=== PATIENT | female | born 1975 | race Caucasian/White ===

== ENCOUNTER 2019-03-16 19:17 | Emergency (ER) | payer OTHER, SELFPAY ==
[2019-03-16 19:18] VITALS: BP 141/92; PULSE 82; RESP 17; TEMP 36.7; O2SAT 100; BMI 25.7
--- NOTE | 2019-03-16 19:31 | EKG12_ITS ---
Test Reason : CP Blood Pressure : / mmHG Vent. Rate : 074 BPM Atrial Rate : 074 BPM P-R Int : 152 ms QRS Dur : 098 ms QT Int : 398 ms P-R-T Axes : 063 054 048 degrees QTc Int : 441 ms Normal sinus rhythm ICR BBB Confirmed by ROGERS BOSS, KENNETH ([id number]), technical editor SERINA GARCIA ([id number]) on 03/18/2019 11:14:06 AM Referred By: RU Confirmed By:KENNETH MCCLOUD MD
[2019-03-16 19:37] VITALS: O2SAT 100
--- NOTE | 2019-03-16 19:38 | ED.DCSUM_ITS ---
- ER Visit Summary Date of Service: 03/16/19 Chief Complaint: Chest pain and palpitations History of Present Illness: The patient is a 43 F who presents with chest pain and palpitations that have been intermittent over the past 5 days. Patient states her pain is in the substernal area. Patient states it feels as though something is crawling in her chest. Patient states she gets intermittent flushed feelings. Patient also states she has intermittent bilateral arm soreness. Patient denies any shortness of breath but admits to a recent cough. Patient also admits to her sore throat a couple weeks ago. Patient admits to subjective fevers. Patient denies any nausea or vomiting. Patient denies any diaphoresis. Patient denies any heartburn or reflux. Physical Examination: Vital signs are stable. Patient is afebrile. Patient is in no acute distress. Oral mucosa is pink and moist. Neck is supple. Trachea is midline. There is no JVD noted. Heart was regular rate and rhythm. Lungs are clear and equal bilateral. There is no reproducible chest tenderness. Abdomen is soft. Bowel sounds are normal. There is no tenderness. There is no guarding noted. Skin is warm dry. Cranial nerves II through XII are intact. There are no focal motor or sensory deficits noted. The remaining physical exam is within normal limits. Test Results: EKG showed normal sinus rhythm with a rate of 74. There are no acute ST or T wave changes. CBC, basic metabolic profile, and troponin were obtained and were normal. PA and lateral chest x-ray was obtained and was normal. Emergency Department Course and Treatment: Patient was given 4 baby aspirin here. Patient felt better on reevaluation. Patient has a HEART score of 2. Patient was advised that this is low risk for acute cardiac event. Patient was instructed to follow-up with her primary care physician in 5 to 7 days. Patient understood and was agreeable with the plan. All questions were answered. Disposition: Discharge home Impression: Chest pain This note was generated with [employer] dictation software. It may contain incorrect words, spelling, and punctuation that were not noted in review of the chart prior to signing ED Disposition - Plan for ED Patient: Disposition: Home or Assisted Living Diagnosis: Chest pain Instructions: ED Palpitations, ED Chest Pain Atypical Unkn Cause Referrals: Alisha Davison DO [Primary Care Provider] - 3-5 Days
--- NOTE | 2019-03-16 19:40 | RAD_ITS ---
HISTORY:CHEST PAIN CHEST PAIN EXAM: XR Chest 2 Views: COMPARISON: July 19, 2016 FINDINGS: # of images incl. paperwork: 2 LINES/DEVICES: None. LUNGS: Radiographically clear. No consolidation, edema or effusion. No pneumothorax. MEDIASTINUM AND CARDIOVASCULAR STRUCTURES: Cardiac silhouette not enlarged. BONES AND SOFT TISSUES: Unremarkable. RAD/Chest PA and Lateral IMPRESSION: No radiographic evidence of acute cardiopulmonary disease. at 1956 Reported and signed by: Myrna Mehta DO Electronically Signed: Myrna Mehta DO at 19:57 EDT Tel , Service support ,
[2019-03-16 19:44] LABS: Absolute Lymphocyte Count 2.89 X10^3/ul (0.83-4.51); Absolute Neutrophil Count 6.3 X10^3/uL (2.0-7.7); Basophil# 0.01 X10^3/uL; Basophil% 0.1 % (0-1); Eosinophil# 0.22 X10^3/uL; Eosinophils% 2.2 % (0-5); Hematocrit 42.2 % (37-47); Hemoglobin 14.6 g/dl (12.0-15.0); Lymphocyte # 2.89 X10^3/ul (4.0); Lymphocyte % 28.7 % (19-41); Mean Corp Hgb Conc 34.6 g/gl (32-36); Mean Corpuscular Hgb 30.1 pg (27.0-32.0); Mean Platelet Vol. 9.6 fl (6.2-12.0); Monocyte# 0.61 X10^3/uL; Monocyte% 6.1 % (0-10); Neutrophil # 6.33 X10^3/uL (2.7-7.7); Neutrophil % 62.7 % (47-70); Platelet Count 328 K/mm3 (150-450); RBC Distribution Width SD 41.6 fl (35.1-43.9); Red Blood Count 4.85 M/mm3 (4.2-5.4); White Blood Count 10.1 K/mm3 (4.4-11.0)
[2019-03-16 19:46] LABS: POSITIVE COUNT NO; POSITIVE DIFFERENTIAL NO; POSITIVE MORPHOLOGY NO
[2019-03-16] MEDS: Aspirin 81 MG TAB.CHEW 324 MG PO (19:47)
[2019-03-16 20:03] LABS: Anion Gap 7 (5-15); BUN 9 mg/dL (7-18); BUN/Creat Ratio 12.5 RATIO (10-20); Calcium,Total 9.2 mg/dL (8.5-10.1); Chloride 105 mmol/L (98-107); Creatinine, Serum 0.72 mg/dL (0.55-1.02); EST Glomerular Filtration Rate 95 mL/min (>60); Est Glom Filt Rate - Afr Amer 115 mL/min (>60); Estimated Creatinine Clearance 96.26 ml/min; Glucose 83 mg/dL (74-106); Potassium 3.6 mmol/L (3.5-5.1); Sodium Level 137 mmol/L (136-145)
[2019-03-16 20:30] VITALS: BP 116/86; PULSE 67; RESP 16; O2SAT 100
== END 2019-03-16 20:31 | disposition home or self-care (01) ==
PROVIDERS: Emergency Provider Emergency Medicine; Family Provider Internal Medicine; PCP Internal Medicine
DX: R07.9 Chest pain, unspecified (principal); R00.2 Palpitations; R05 Cough; R51 Headache; J02.9 Acute pharyngitis, unspecified
CPT/HCPCS: 71046; 80048; 84484; 85025; 93005; 99285; A4216

== ENCOUNTER → 2021-09-19 13:04 | Outpatient (CLI) | payer OTHER, SELFPAY ==
--- NOTE | 2021-09-19 13:06 | BI_ITS ---
MAMMOGRAPHY - BILATERAL SCREENING REASON FOR EXAM: Female, 45 years old. Routine annual screening examination. PERTINENT HISTORY: Grandmother with breast cancer. TECHNIQUE: Digital bilateral breast vickie (3D mammographic acquisition) in the CC and MLO projections. 2-D mediolateral oblique (MLO) and craniocaudad (CC) views of both breasts were obtained. CAD: Full Field Digital Mammography with Computer Added Detection was performed. COMPARISON: Comparison is made with prior outside examination dated 07/02/2019. FINDINGS: Breast Composition: The breasts are heterogeneously dense, which may obscure small masses. There are no dominant masses or suspicious calcifications. Stable benign appearing bilateral axillary lymph nodes. No other significant abnormalities are identified. There has been no significant change since the prior study. BI/SCRN MAMM (CAD)W/VICKIE BILAT IMPRESSION: Stable bilateral screening mammogram. Yearly follow-up mammogram recommended. (A) ASSESSMENT CATEGORY: BIRADS Category 2: Benign. A letter regarding these results will be sent to the patient by the facility within 30 days. Approximately 10% of breast cancers are not detected by mammography. A normal mammogram should not delay biopsy of a clinically suspicious abnormality. [id number] Electronically Signed: Blas Berumen MD at 12:49 EST , Service support ,
== END ==
PROVIDERS: PCP Internal Medicine; Referring Provider Obstetrics & Gynecology; Visit Provider Obstetrics & Gynecology
DX: Z12.31 Encounter for screening mammogram for malignant neoplasm of breast (principal)
CPT/HCPCS: 77063; 77067

== ENCOUNTER → 2024-09-23 | Outpatient (CLI) | payer OTHER, SELFPAY ==
--- NOTE | 2024-09-23 15:36 | BI_ITS ---
MAMMOGRAPHY - BILATERAL SCREENING REASON FOR EXAM: Female, 48 years old. Routine annual screening examination. PERTINENT HISTORY: Grandmother with breast cancer. TECHNIQUE: Digital bilateral breast vickie (3D mammographic acquisition) in the CC and MLO projections. 2-D mediolateral oblique (MLO) and craniocaudad (CC) views of both breasts were obtained. CAD: Full Field Digital Mammography with Computer Added Detection was performed. COMPARISON: Comparison is made with prior study of September 19, 2021. FINDINGS: Breast Composition: The breasts are heterogeneously dense, which may obscure small masses. There are no dominant masses or suspicious calcifications. Stable small benign-appearing bilateral axillary lymph nodes. No other significant abnormalities are identified. There has been no significant change since the prior study. BI/SCRN MAMM (CAD)W/VICKIE BILAT IMPRESSION: Stable bilateral screening mammogram. Yearly follow-up mammogram recommended. (A) ASSESSMENT CATEGORY: BIRADS Category 2: Benign. A letter regarding these results will be sent to the patient by the facility within 30 days. Approximately 10% of breast cancers are not detected by mammography. A normal mammogram should not delay biopsy of a clinically suspicious abnormality. [id number] Electronically Signed: Blas Berumen MD at 8:38 EST ,
== END | disposition home or self-care (01) ==
PROVIDERS: PCP Internal Medicine; Referring Provider Nurse Practitioner Family; Visit Provider Nurse Practitioner Family
DX: Z12.31 Encounter for screening mammogram for malignant neoplasm of breast (principal); Z80.3 Family history of malignant neoplasm of breast
CPT/HCPCS: 77063; 77067

== ENCOUNTER → 2024-12-14 | Outpatient (CLI) | payer OTHER, SELFPAY ==
--- NOTE | 2024-12-14 | EMB_PTH ---
PATIENT: TARA CRUZ LOC: [facility] U#:[id number] AGE/SX: 48/F ROOM: RE12/14/[address]: Dr. Ceci Suarez MD : 1975 BED: DIS: 12/14/2024 SPEC #: [id number] RECD: 12/14/24 15:49 STATUS: DAYNA RERene #: [id number] MELISSA: 12/14/24 00:[address]: Ceci Suarez DEPT: SURGICAL PATHOLOGY RECD BY: Adrian Lee ENTERED: 12/15/24 07:42 SP TYPE: ENDOM BX/C DANNY DR: Dr. 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 * Note: The amount of tissue (epithelium) is limited. MICROSCOPIC DESCRIPTION Slides are reviewed. GROSS DESCRIPTION Received is one container labeled with the patient's name and accession number. It is not further designated. The container is opened, revealing no definite tissue in the container. The formalin is filtered into a cassette for processing and a cellblock is prepared from the filtrate. TE2. EH 12/15/24. CPT:67031
[2024-12-18 10:08] LABS: HPV APTIMA, High Risk Negative (Negative)
[2024-12-19 13:08] LABS: DHEA Sulfate 91.9 ug/dL (41.2-243.7); Testosterone Free 1.4 pg/mL (0.0-4.2)
== END | disposition home or self-care (01) ==
LOC: BWCLAB 09:06
PROVIDERS: PCP Internal Medicine; Visit Provider Obstetrics & Gynecology
DX: Z12.4 Encounter for screening for malignant neoplasm of cervix (principal); C80.1 Malignant (primary) neoplasm, unspecified; N91.1 Secondary amenorrhea
CPT/HCPCS: 36415; 82627; 84402; 87624; 88175; 88305; 82626; G0145

== ENCOUNTER → 2025-09-27 | Outpatient (CLI) | payer OTHER, SELFPAY ==
[2025-09-27 13:31] LABS: Follicle Stimulating Hormone 78.0 mIU/mL
--- OUTSIDE RECORDS SUMMARY | 2025-09-27 18:27 | XMS RPT_ITS | CCD ---
Author Organization [facility] Care Team Providers Care Air Press Operator Name Role Phone Alisha Ingram Unavailable Day Chantel Unavailable Unavailable Unavailable Unavailable Unavailable Primary Care Provider UnavailGabriel Shoemaker MD Unavailable [phone] Alisha Ingram DO Primary Care Provider GABRIEL SANDERS Attending Unavailable CECI SALEEM Referring Unavailable ALISHA INGRAM Primary Care Unavailable Ceci Saleem Attending Unavailable Alisha Ingram Primary Care Unavailable Alisha Ingram Referring Unavailable Alisha Ingram Primary Care Unavailable Shalini Lange Attending Unavailable Shalini Lange Referring Unavailable Alisha Ingram Primary Care Unavailable Ceci Saleem Attending Unavailable Dr. Alisha Ingram DO Primary Care Provider [phone] Nazario RANCH HAND LIVESTOCK-CShalini Attending Provider [phone] Nazario RANCH HAND LIVESTOCK-CShalini Referring Provider Dr. Alisha Ingram DO Referring Provider Dr. Ceci Saleem MD Attending Provider Allergies Allergy Classification Reported Allergen(s) Allergy Type Date of Onset Reaction(s) Facility (5 sources) Prochlorperazine; Translations: [Compazine *ANTIPSYCHOTICS*] Drug Allergy 06-18-20 06 Other [facility] Work Phone: (4 sources) Sulfamethoxazole / Trimethoprim; Translations: [Bactrim *Anti-infective Agents - Misc.] Drug Allergy 12-19-19 25 [facility] Work Phone: (2 sources) Prochlorperazine; Translations: [PROCHLORPERAZINE EDISYLATE] Drug Allergy 06-18-20 06 [facility] (2 sources) Sulfonamides (Antibiotic); Translations: [SULFA (SULFONAMIDE ANTIBIOTICS)] Propensity to adverse reactions 06-18-20 06 GI Upset [facility] (2 sources) Trimethoprim Drug Allergy 03-16-20 19 Other [facility] (1 source) Prochlorperazine Drug Allergy 03-16-20 19 [facility] (1 source) Sulfamethoxazole Drug Allergy 03-16-20 19 [facility] (1 source) Trimethoprim Drug Allergy 03-16-20 19 [facility] (1 source) Sulfamethoxazole Drug Allergy 03-16-20 19 Other [facility] Medications Current Medications Medication Drug Class(es) Dates Sig (Normalized) Sig (Original) Ethinyl Estradiol / norgestimate (1 source) Progestin, Estrogen Start: 3 take 1 tablet by mouth once daily Norgestimate-Ethinyl Estradiol (TRI-SPRINTEC) 0.18/0.215/0.25 mg-35 mcg (28) Tab Take 1 tablet by mouth once daily. 1 Package 10 01/13/2013 Active medroxyPROGESTERone acetate 10 mg oral tablet (2 sources) Progestin Start: 5 take 1 tablet by mouth once daily medroxyPROGESTERone (Provera) 10 MG tablet Take 10 mg by mouth daily. 12/15/2024 Active Multiple Vitamin (multivitamin) tablet (1 source) take 1 tablet by mouth once daily Multiple Vitamin (multivitamin) tablet Take 1 tablet by mouth daily. Active Multivitamin (Once Daily) 1 EACH tablet (1 source) Start: 9 take 1 tablet by mouth once daily Multivitamin (Once Daily) 1 EACH tablet Active 1 NMA PO DAILY March 16, 2019 12:00am Rpnpxqrg-Ch-Cdm-Fe-FA ( VITAMIN) Tab (1 source) take 1 tablet by mouth once Uowcfdur-Et-Cpc-Fe-FA ( VITAMIN) Tab Take 1 tablet by mouth. Active vitamin b12 1 mg oral capsule (2 sources) Vitamin B12 Start: 9 take 1 capsule by mouth once daily Cyanocobalamin (Vitamin B-12) 1,000 MCG capsule Active 1000 ug PO DAILY March 16, 2019 12:00am take 1 tablet by mouth once rm y cyanocobalamin (Vitamin B-12) 1000 MCG tablet Take 1,000 mcg by mouth daily. Active Completed/Discontinued Medications Medication Drug Class(es) Dates Sig (Normalized) Sig (Original) acetaminophen 500 mg / HYDROcodone bitartrate 5 mg oral tablet (3 sources) Opioid Agonist End: 04-18-2009 take 1 tablet by mouth every four to six hours as needed VICODIN, 5-500MG (Oral Tablet) 1 q 4-6 hrs prn for 0 days Refills: 0 Ordered: 18-Apr-2009 RICHIE Martínez End : 18-Apr-2009 Inactive 200 actuat albuterol 0.09 mg/actuat metered dose inhaler (6 sources) beta2-Adrenergic Agonist Start: 07-19-2016 End: 07-29-2017 ProAir HFA 108 (90 Base) MCG/ACT Inhalation Aerosol Solution 2 (two) Aerosol Soln q 6 hr prn for 0 days Quantity: 1 {Inhaler} Refills: 0 Ordered: 29-Jul-2017 Chantel Bernstein LPN Start : 19-Jul-2016 End : 29-Jul-2017 Inactive Start: 01-27-2008 End: 02-17-2008 PROVENTIL HFA, 108 (90 Base) MCG/ACT (Inhalation Aerosol Solution) 2 (two) Aerosol Soln TID/PRN for 0 days Quantity: 1 {Aerosol_Soln} Refills: 0 Ordered: 27-Jan-2008 RICHIE Martínez Start : 27-Jan-2008 End : 17-Feb-2008 Discontinued amoxicillin 875 mg / clavulanate 125 mg oral tablet (3 sources) Penicillin-class Antibacterial Start: 07-19-2016 End: 07-29-2017 take 1 tablet by mouth twice daily Augmentin 875-125 MG Oral Tablet 1 (one) Tablet bid for 0 days Quantity: 20 {Tablet} Refills: 0 Ordered: 29-Jul-2017 Chantel Bernstein LPN Start : 19-Jul-2016 End : 29-Jul-2017 Inactive azithromycin 250 mg oral tablet (3 sources) Macrolide Antimicrobial Start: 01-27-2008 End: 02-17-2008 ZITHROMAX Z-JESSICA, 250MG (Oral Tablet) 1 Tablet uad for 0 days Refills: 0 Ordered: 27-Jan-2008 RICHIE Martínez Start : 27-Jan-2008 End : 17-Feb-2008 Discontinued benzonatate 100 mg oral capsule (3 sources) Non-narcotic Antitussive Start: 08-03-2011 End: 07-19-2016 take 1 capsule by mouth three times daily Tessalon Perles 100 MG Oral Capsule 1 Capsule tid for 0 days Quantity: 30 {Capsule} Refills: 0 Ordered: 19-Jul-2016 Chantel Bernstein LPN Start : 03-Aug-2011 End : 19-Jul-2016 Inactive cefuroxime 500 mg oral tablet (3 sources) Cephalosporin Antibacterial Start: 01-27-2008 End: 02-17-2008 take 1 tablet by mouth twice daily CEFTIN, 500MG (Oral Tablet) Tablet BID for 0 days Quantity: 20 {Tablet} Refills: 0 Ordered: 27-Jan-2008 RICHIE Martínez Start : 27-Jan-2008 End : 17-Feb-2008 Discontinued ciprofloxacin 500 mg oral tablet (3 sources) Quinolone Antimicrobial Start: 01-23-2010 End: 01-30-2010 take 1 tablet by mouth twice daily CIPRO, 500MG (Oral Tablet) 1 (one) Tablet bid for 7 days Quantity: 14 {Tablet} Refills: 0 Ordered: 09-Feb-2010 Fiona Dooley CNP Start : 23-Jan-2010 End : 30-Jan-2010 Inactive clarithromycin 500 mg oral tablet (3 sources) Macrolide Antimicrobial Start: 01-14-2007 End: 01-27-2008 take 1 tablet by mouth every twenty-four hours BIAXIN XL PAC, 500MG (Oral Tablet Extended Release 24 Hour) 1 Tablet ER 24HR as directed for 0 days Quantity: 2 {Package(s)} Refills: 0 Ordered: 14-Jan-2007 RICHIE Martínez Start : 14-Jan-2007 End : 27-Jan-2008 Discontinued desoximetasone 2.5 mg/ml topical cream (3 sources) Corticosteroid Start: 08-23-2010 End: 07-19-2016 Topicort 0.25 % External Cream 1 Cream bid for 0 days Quantity: 1 {Cream} Refills: 0 Ordered: 19-Jul-2016 Chantel Bernstein LPN Start : 23-Aug-2010 End : 19-Jul-2016 Inactive diphenhydrAMINE hydrochloride 25 mg oral tablet (3 sources) Histamine-1 Receptor Antagonist Start: 08-23-2010 End: 08-03-2011 take 1 tablet by mouth at bedtime as needed BENADRYL, 25MG (Oral Tablet) 1 Tablet hs prn for 0 days Quantity: 30 {Tablet} Refills: 0 Ordered: 03-Aug-2011 Analilia Duncan LPN Start : 23-Aug-2010 End : 03-Aug-2011 Inactive BRANDON 3-0.02 MG Oral Tablet (9 sources) Progestin, Estrogen Start: 01-09-2010 End: 07-19-2016 take 1 tablet by mouth once daily BRANDON 3-0.02 MG Oral Tablet 1 Tablet qd for 0 days Quantity: 1 {Package(s)} Refills: 11 Ordered: 19-Jul-2016 Chantel Bernstein LPN Start : 09-Jan-2010 End : 19-Jul-2016 Inactive Start: 01-05-2010 take 1 tablet by snow th once daily OCELLA, 3-0.03MG (Oral Tablet) 1 Tablet qd for 30 days Refills: 0 Ordered: 09-Jan-2010 Chantel Bernstein LPN Start : 05-Jan-2010 Inactive End: 01-27-2008 MARTIN 28, 3-0.03MG (Oral Ta blet) for 0 days Refills: 0 Ordered: 27-Jan-2008 RICHIE Martínez End : 27-Jan-2008 Discontinued levoFLOXacin 500 mg oral tablet (9 sources) Quinolone Antimicrobial Start: 08-03-2011 End: 08-13-2011 take 1 tablet by mouth once daily LEVAQUIN, 500MG (Oral Tablet) 1 Tablet daily for 10 days Quantity: 10 {Tablet} Refills: 0 Ordered: 03-Aug-2011 Kaye Newton MD Start : 03-Aug-2011 End : 13-Aug-2011 Inactive Start: 01-03-2009 End: 04-18-2009 take 1 tablet by mouth once daily LEVAQUIN, 750MG (Oral Tablet) 1 (one) Tablet Daily for 0 days Quantity: 5 {Tablet} Refills: 0 Ordered: 03-Jan-2009 RICHIE Martínez Start : 03-Jan-2009 End : 18-Apr-2009 Inactive End: 04-18-2009 take 1 tablet by mouth once daily LEVAQUIN, 250MG (Oral Tablet) 1 qd for 0 days Refills: 0 Ordered: 18-Apr-2009 RICHIE Martínez End : 18-Apr-2009 Inactive predniSONE 10 mg oral tablet (6 sources) Start: 07-19-2016 End: 07-24-2016 take 3 tablets by mouth once daily PredniSONE 10 MG Oral Tablet 3 (three) Tablet daily for 5 days Quantity: 15 {Tablet} Refills: 0 Ordered: 19-Jul-2016 Laney ADLER Alisha Shane DO Start : 19-Jul-2016 End : 24-Jul-2016 Inactive Start: 01-27-2008 End: 02-17-2008 PREDNISONE, 20MG (Oral Table t) Tablet 1 a day for 5 days and 1/2 a day for 5 days for 0 days Refills: 0 Ordered: 27-Jan-2008 RICHIE Martínez Start : 27-Jan-2008 End : 17-Feb-2008 Discontinued NEGATED: Highlighted row has not occurred!drug or medication (3 sources) No Known Histori blair Medications Problems Active Problems Problem Classification Problem Date Documented Date Episodic/Chronic Acute bronchitis (3 sources) Acute bronchitis; Translations: [Acute bronchitis, unspecified organism] 05-27-2019 Episodic Cancer of other female genital organs (3 sources) 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; Translations: [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] 05-27-2019 Chronic Comment on above: Left ovary - Germ ce ll Chronic obstructive pulmonary disease and bronchiectasis (9 sources) Chronic obstructive pulmonary disease and bronchiectasis Contraceptive and procreative management (1 source) Encounter for contraceptive management, unspecified; Translations: [Encounter for contraceptive management, unspecified] Onset: 12-14-2024 Episodic Genitourinary symptoms and ill-defined conditions (3 sources) Stress incontinence, female; Translations: [INCONTINENCE, FEMALE STRESS] 05-27-2019 Chronic Comment on above: has tried kegal stil l some constipation Immunizations and screening for infectious disease (6 sources) Need for prophylactic vaccination and inoculation against influenza Episodic Malignant neoplasm without specification of site (3 sources) Malignant (primary) neoplasm, unspecified; Translations: [Malignant neoplastic disease] Onset: 12-14-2024 12-14-2024 Chronic Comment on above: stage 4 2000, 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 Nonmalignant breast conditions (3 sources) Other signs and symptoms in breast Episodic Nonspecific chest pain (1 source) Chest pain; Translations: [Chest pain, unspecified] 03-17-2019 Episodic Other lower respiratory disease (9 sources) Cough; Translations: [Cough] Resolved: 07-29-2017 07-29-2017 Episodic Other nutritional; endocrine; and metabolic disorders (3 sources) Body mass index 25-29 - overweight; Translations: [BMI 26.0-26.9,adult] 05-27-2019 Chronic Other and delivery including normal (3 sources) ; Translations: [ state, incidental] 05-27-2019 Episodic Other screening for suspected conditions (not mental disorders or infectious disease) (2 sources) Encounter for screening for malignant neoplasm of cervix; Translations: [Encounter for screening mammogram for malignant neoplasm of breast] Onset: 10-28-2024 Episodic Other upper respiratory infections (16 sources) Acute sinusitis, unspecified; Translations: [Acute sinusitis] 05-27-2019 Episodic Residual codes; unclassified (3 sources) History of unilateral oophorectomy; Translations: [Oophorectomy; Unilateral] 05-27-2019 Episodic Comment on above: Left ovary for cance r 2000 Residual codes; unclassified (3 sources) Needs influenza immunization; Translations: [Need for prophylactic vaccination and inoculation against influenza (Renamed from Need for immunization against influenza)] 05-27-2019 Episodic Residual codes; unclassified (1 source) History of germ cell tumor; Translations: [Personal history of other specified conditions] 12-21-2024 Episodic Unclassified (20 sources) Unclassified (6 sources) IUP Unclassified (6 sources) SYMPTOMS INVOLVING RESPIRATORY SYSTEM AND OTHER CHEST SYMPTOMS; OTHER DYSPNEA AND RESPIRATORY ABNORMALITY (786.09) Viral infection (1 source) Viral disease; Translations: [Viral infection, unspecified] 08-05-2024 Episodic Past or Other Problems Problem Classification Problem Date Documented Da te Episodic/Chronic Acute and chronic tonsillitis (3 sources) Acute tonsillitis; Translations: [Acute tonsillitis] Resolved: 03-16-2009 07-29-2017 Episodic Acute bronchitis (3 sources) Acute bronchitis Allergic reactions (3 sources) Contact dermatitis due to poison jody; Translations: [Contact dermatitis due to poison jody] Resolved: 07-29-2017 07-29-2017 Episodic Cancer of ovary (1 source) History of malignant neoplasm of ovary; Translations: [Personal history of malignant neoplasm of ovary] Onset: 09-18-2012 10-02-2021 Episodic Chronic obstructive pulmonary disease and bronchiectasis (3 sources) Bronchitis; Translations: [Bronchitis] Resolved: 02-17-2008 07-29-2017 Episodic Comment on above: better but still linnea nd wheezy. will reassess in 2 weeks so good for delivery Malaise and fatigue (3 sources) Fatigue; Translations: [Fatigue] Resolved: 03-16-2009 07-29-2017 Episodic Nonmalignant breast conditions (3 sources) Breast signs and symptoms; Translations: [Other signs and symptoms in breast] Resolved: 07-29-2017 07-29-2017 Other circulatory disease (3 sources) Abnormal chest sounds; Translations: [Abnormal lung sounds] Resolved: 07-29-2017 07-29-2017 Episodic Other complications of ; puerperium affecting management of mother (1 source) Advanced maternal age ; Translations: [Advanced maternal age in ] Onset: 11-04-2012 Resolved: 11-20-2012 10-02-2021 Episodic Other complications of (1 source) Missed miscarriage; Translations: [Missed ] Onset: 11-20-2012 11-20-2012 Episodic Other complications of (1 source) H/O: depression; Translations: [History of depression, currently ] Onset: 11-04-2012 Resolved: 11-20-2012 10-02-2021 Episodic Other complications of (1 source) RhD negative; Translations: [Other specified related conditions, unspecified trimester] Onset: 11-04-2012 Resolved: 11-20-2012 10-02-2021 Episodic Other gastrointestinal disorders (3 sources) Constipation; Translations: [Constipation] Resolved: 03-16-2009 07-29-2017 Episodic Other lower respiratory disease (3 sources) Abnormal breathing; Translations: [Unspecified abnormalities of breathing] Resolved: 04-18-2009 07-29-2017 Episodic Comment on above: much better now, no residual resp issue,okay for delivery. Unclassified (3 sources) INCONTINENCE, FEMALE STRESS (625.6) Unclassified (12 sources) Physical exam; Translations: [Patient encounter status] 05-27-2019 Unclassified (3 sources) Abnormal lung sounds Unclassified (6 sources) Encounter for well adult exam with abnormal findings (Renamed from Encounter for general adult medical examination with abnormal findings); Translations: [Patient encounter status] 05-27-2019 Unclassified (3 sources) Deliveries (Parity); Translations: [Deliveries (Parity)] 05-27-2019 Comment on above: 1 Unclassified (12 sources) Non-smoker; Translations: [Non-smoker] 05-27-2019 Unclassified (3 sources) Pregnancies (); Translations: [Pregnancies ()] 05-27-2019 Comment on above: 1 Unclassified (6 sources) Unspecified Diagnosis 05-27-2019 Unclassified (3 sources) Pyelonephritis, unspecified (590.80) Unclassified (6 sources) Patient encounter status; Translations: [Annual physical exam] 07-29-2017 Unclassified (3 sources) Cystitis,Acute (595.0) Unclassified (3 sources) CONTACT DERMATITIS D/T POISON JODY, (692.6) Unclassified (9 sources) BMI 26.0-26.9,adult Urinary tract infections (6 sources) Acute cystitis; Translations: [Pyelonephritis, unspecified] Resolved: 07-29-2017 07-29-2017 Episodic Results Test Name Value Interpretation Reference Range Facility Office Visiton 12-21-2024 Follow-up visit [id number] Danna Cruz 1975 F Date Provider Department Center 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 DHEA Sulfateon 12-19-2024 DHEA SULFATE 91.9 ug/dL Normal 41.2-243.7 [facility] Comment on above: Order Comment: N Performed By: #### L 3300.1500, L3400.4800 #### [facility] [address] [place], [address] Testosterone Freeon 12-20-19 25 TESTOSTER FREE 1.4 pg/mL Normal 0.0-4.2 [facility] Comment on above: Result Comment: Perf ormed at: - [facility] [address], [place] [id number] Dive Master: Petey Santoro PhD, Phone: [phone] Performed at: - [facility] [id number] Dive Master: Jono Singh MD, Phone: [phone] Performed By: #### L 3300.1500, L3400.4800 #### [facility] [address] [place], [place], [address] 36on 12-18-2024 36 Called pt and left message to pre-reg new patient appointment with Dr. Sanders. Phone number left if pt wants to call back to do so. Normal [facility] PAP IG HPV APTIMA 16/18,45on 12-18-2024 ADEQ Comment Normal . [facility] Comment on above: Order Comment: Speci men Comment: [id number] Specimen Comment: Source.............Cervix Specimen Comment: No. of containers..01 ThinPrep Vial Result Comment: Sati sfactory for evaluation. Endocervical and/or squamous metaplastic cells (endocervical component) are present. Performed By: #### L 7400.0280 #### [facility] [address] [place], [place], [address] COMM . Normal . [facility] Comment on above: Order Comment: Speci men Comment: [id number] Specimen Comment: Source.............Cervix Specimen Comment: No. of containers..01 ThinPrep Vial Performed By: #### L 7400.0280 #### [facility] [address] [place], [place], [id number] COMMENT Comment Normal . [facility] Comment on above: Order Comment: Speci men Comment: [id number] Specimen Comment: Source.............Cervix Specimen Comment: No. of containers..01 ThinPrep Vial Result Comment: This liquid based ThinPrep(R) pap test was screened with the use of an image guided system. Performed By: #### L 7400.0280 #### [facility] [address] [place], [address] DIAG Comment Normal . [facility] Comment on above: Order Comment: Speci men Comment: [id number] Specimen Comment: Source.............Cervix Specimen Comment: No. of containers..01 ThinPrep Vial Result Comment: NEGA TIVE FOR INTRAEPITHELIAL LESION OR MALIGNANCY. Performed By: #### L 7400.0280 #### [facility] [address] [place], [address] HPV APTIMA, HR Negative Normal Negative [facility] Comment on above: Order Comment: Speci men Comment: [id number] Specimen Comment: Source.............Cervix Specimen Comment: No. of containers..01 ThinPrep Vial Result Comment: This nucleic acid amplification test detects fourteen high- risk HPV types (16,18,31,33,35,39,45,51,52,56,58,59,66,68) without differentiation. Performed By: #### L 7400.0280 #### [facility] [address] [place], [place], [address] HPV Netta Rfx Comment Normal . [facility] Comment on above: Order Comment: Speci men Comment: [id number] Specimen Comment: Source.............Cervix Specimen Comment: No. of containers..01 ThinPrep Vial Result Comment: Crit eria not met, HPV Genotype not performed. Performed at: [address] [id number] Dive Master: Coral Shepard MD, Phone: [phone] Performed at: =[facility] [id number] Dive Master: Coral Shepard MD, Phone: [phone] Performed By: #### L 7400.0280 #### [facility] [address] [place], [place], [id number] PAPSMR Comment Normal . [facility] Comment on above: Order Comment: Speci men Comment: [id number] Specimen Comment: Source.............Cervix Specimen Comment: No. of containers..01 ThinPrep Vial Result Comment: The Pap smear is a screening test designed to aid in the detection of premalignant and malignant conditions of the uterine cervix. It is not a diagnostic procedure and should not be used as the sole means of detecting cervical cancer. Both false-positive and false-negative reports do occur. Performed By: #### L 7400.0280 #### [facility] [address] [place], [place], [id number] PERFORM Comment Normal . [facility] Comment on above: Order Comment: Speci men Comment: [id number] Specimen Comment: Source.............Cervix Specimen Comment: No. of containers..01 ThinPrep Vial Result Comment: Zandra Charles Bundle Helper (ASCP) Performed By: #### L 7400.0280 #### [facility] [address] [place], [place], [id number] Surgical pathology reportOrd ered By: Mariama Flowers on 12-18-2024 Surgical pathology study [facility] Drywall Finisher Cyto stain Nom (C vx/Vag) [ID]Ordered By: Ceci Saleem on 12-14-2024 Pap Smear Performed By Comment . [facility] Comment on above: Tashia Charles Cytot echnologist (ASCP) Cytology report Cyto stain D oc (Cvx/Vag)Ordered By: Ceci Saleem on 12-14-2024 Thin Prep Pap Smear Comment . [facility] Comment on above: The Pap smear is a s creening test designed to aid in thedetection of premalignant and malignant conditions of theuterine cervix. It is not a diagnostic procedure andshould not be used as the sole means of detecting cervicalcancer. Both false-positive and false-negative reports dooccur. Cytology report Cyto stain.t hin prep Doc (Cvx/Vag)Ordered By: Ceci Saleem on 12-14-2024 HPV Genotype Special Info Comment . [facility] Comment on above: Criteria not met, HP V Genotype not performed.Performed at: - [facility] [id number] Director: Coral Shepard MD, Phone: [phone] at: = - [facility] [id number] Director: Coral Shepard MD, Phone: [phone] Dehydroepiandrosterone sulfa te (DHEA-S) measurementOrdered By: Ceci Saleem on 12-14-2024 Dehydroepiandrosterone Sulfate 91.9 ug/dL 41.2-243.7 [facility] HPV 16+18+31+33+35+39+45+51+ 52+56+58+59+66+68 DNA Probe+sig amp Ql (Cvx)Ordered By: Ceci Saleem on 12-14-2024 Human Papillomavirus High Risk Negative Negative [facility] Comment on above: This nucleic acid am plification test detects fourteen high-risk HPV types (16,18,31,33,35,39,45,51,52,56,58,59,66,68)without differentiation. Image-guided ThinPrep PapOrd ered By: Ceci Saleem on 12-14-2024 Pap Smear Note Comment . [facility] Comment on above: This liquid based Th inPrep(R) pap test was screened withthe use of an image guided system. Image-guided liquid-based Pa pOrdered By: Ceci Saleem on 12-14-2024 Pap Smear Diagnosis Comment . [facility] Comment on above: NEGATIVE FOR INTRAEP ITHELIAL LESION OR MALIGNANCY. Laboratory - Chemistry and C hemistry - challengeOrdered By: Ceci Saleem on 12-14-2024 HCG ( test) Ql (U) Negative [facility] Molecular Biologist Office Visit Reporton 12-14-2024 Molecular Biologist Office Visit Report [facility] [address], [address] [place] [address] OFFICE VISIT Date of Service: 12/14/24 MR#: [id number] Acct: [id number] Name: ROBYN CRUZ Rep #: [id number] : 1975 Provider: Dr. Ceci bishop MD Age/Sex: 48/F [place] [facility] [place]: Signed Intake Vital Signs 03/16/19 19:18 12/14/24 08:18 Height 5 ft 6 in 5 ft 6 in Weight: 171 lb 6 oz 171 lb 6 oz BMI 27.6 27.6 BP 102/70 102/70 Intake Visit Reasons: EMB, AUB HX CANCER Interventional Nurse Required: No Is patient in pain?: No Allergies sulfamethoxazole (From Bactrim) Allergy (Verified 03/16/19 19:18) Other trimethoprim (From Bactrim) Allergy (Verified 03/16/19 19:18) Other prochlorperazine (From Compazine) Adverse Reaction (Verified 03/16/19 19:18) Other Medications ???Medication ???Instructions ???Recorded ???Confirmed ???Type cyanocobalamin (vitamin B-12) 1,000 mcg PO DAILY 03/16/19 History 1,000 mcg capsule multivitamin (Once Daily tablet) 1 ea PO DAILY 03/16/19 12/14/24 Hi story Is last menstrual period known: No Post menopausal: No Patient : No : No PFSH PFSH Medical History (Updated 12/14/24 @ 08:[address] Ceci Saleem MD) Germ cell cancer Vitamin D deficiency Surgical History (Updated 12/14/24 @ 08:26 by Candy Estevez) H/O unilateral salpingectomy Family History (Updated 12/14/24 @ 08:22 by Candy Estevez) Brother Alcoholism Suicide attempt Grandmother Arthritis Hypertension Mother Bowel disease Grandfather Heart disease Social History (Updated 12/14/24 @ 08:17 by Candy Estevez) current occupational status: employed current occupation: [employer] sexually active: Yes Smoking Status: Never smoker alcohol intake: current alcohol intake frequency: a few times a month substance use type: marijuana and other details: marijuana sleep gummies 3x a week what type of physical activity do you participate in: other details: cardio frequency: 3-4 times per week additional social history: Single History 3 Elective abortions Hx Para 2 Spontaneous abortions Hx # Term Pregnancies Ectopic pregnancies Hx # Pregnancies Multiple births # of living children HPI EMB, AUB HX CANCER Details: ROBYN CRUZ is a 48 year old who presents for some irregular menses. she only has 1-2 menses per year, they are light and not too heavy. she did have one heavy menses but they have in general only lasted a few days. she saw internal medicine and they ordered labs and was told they were all normal. 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 she denies any abdominal pain or cramping. she does feel off hormonally and has low libido Female Reproductive History Menopausal Symptoms: No night sweats ROS Const Constitutional: Denies fatigue, night sweats, weight gain or weight loss ENT ENT: Reports system reviewed and no additional complaints, except as documented Cardio Card: Denies chest pain Resp Resp: Denies cough or dyspnea GI GI: Reports as per HPI; Denies abdominal pain, constipation, nausea or vomiting : Denies nipple discharge, urinary frequency, urinary incontinence, urinary hesitancy, urinary urgency, vaginal discharge, vaginal dryness, vaginal odor or vaginal pruritus Musc Musc: Denies arthralgias, back pain or muscle weakness Skin Skin/Breast: Denies alopecia, change in hair, dry skin, breast mass, breast pain, breast skin changes or nipple discharge Neuro Neuro: Reports system reviewed and no additional complaints, except as documented Psych Psych: Reports system reviewed and no additional complaints, except as documented Endo Endo: Denies cold intolerance, excessive sweating, heat intolerance or polydipsia Oscar/Lymph Hematologic/Lymphatic: Denies easy bleeding, Denies easy bruising and Denies lymphadenopathy Exam Const General: cooperative, healthy appearing, comfortable, no acute distress and well developed Orientation: alert HENMT Head: normal to inspection and normocephalic Ears: hearing grossly normal bilaterally and external ears normal Nose: external nose normal and nares normal Face and sinus: normal facial exam Neck Neck: normal visual inspection and no lymphadenopathy Thyroid: thyroid normal Chest Chest palpation inspection: normal inspection of the chest Resp Effort Inspection: normal respiratory effort Auscultation: clear to auscultation bilaterally Cardio Rate: regular rate Rhythm: regular rhythm Heart Sounds: S1 normal and S2 normal GI Inspection: normal to inspection and non-distended Palpation: soft and no hepatosplenomegaly General: bladder normal to palpation External Female Exam: normal external appearance and normal appearance of the (more content not included)... Normal [facility] Service comment (Unsp spec) [Interp]Ordered By: Ceci Saleem on 12-14-2024 Pap Smear Comment (3) . . [facility] Surgery Specimen Level Yumi 12-14-2024 Surgery Specimen Level IV Patient Age/Sex Location Account Attending Physician ROBYN CRUZ 48/F [facility] [id number] Dr. Ceci Saleem MD Specimen: [id number] Received: 12/14/24154 Status: DAYNA Sin Num: [id number] Spec Type: ENDOM BX/C Marly Dr: Dr. Ceci Saleem MD HEADER OPERATION: Endometrial biopsy PRE-OP DIAGNOSIS: History of germ cell carcinoma TISSUE SUBMITTED: Endometrial tissue MICROSCOPIC DIAGNOSIS ENDOMETRIUM, BIOPSY: * Few strips of benign surface epithelium - see note. * Note: The amount of tissue (epithelium) is limited. MICROSCOPIC DESCRIPTION Slides are reviewed. GROSS DESCRIPTION Received is one container labeled with the patient's name and accession number. It is not further designated. The container is opened, revealing no definite tissue in the container. The formalin is filtered into a cassette for processing and a cellblock is prepared from the filtrate. TE2. EH 12/15/24. CPT:37634 Patient Age/Sex Location Account Attending Physician [facility] 48[id number]. Ceci Saleem MD Signed (signature on file) Dr. Mariama Flowers MD 12/18/24 1725 Normal [facility] Comment on above: Performed By: #### P SUIV #### [facility] [address] [place] [address], [address] Testosterone Free [Mass/Vol] Ordered By: Ceci Saleem on 12-14-2024 Free Testosterone 1.4 pg/mL 0.0-4.2 [facility] Comment on above: Performed at: [address] [id number] Director: Petey Santoro PhD, Phone: [phone] at: [facility] Lab[address] [id number] Director: Jono Singh MD, Phone: [phone] SCRN MAMM (CAD)W/VICKIE BILATo n 09-23-2024 SCRN MAMM (CAD)W/VICKIE BILAT [facility] [address] [place] [address] SCRN MAMM (CAD)W/VICKIE BILAT MR#: [id number] Acct: [id number] Name: ROBYN CRUZ Rep #: [id number] : 1975 F 48 From: Blas collins MD PCP: Dr. Alisha Ingram, DO Status: [facility] Study: SCRN MAMM (CAD)W/VICKIE BILAT Date of Exam: 09/06 05/30 Exam# [id number] Ordering Dr: Shalini Lange [employer]-C [id number] MAMMOGRAPHY - BILATERAL SCREENING REASON FOR EXAM: Female, 48 years old. Routine annual screening examination. PERTINENT HISTORY: Grandmother with breast cancer. TECHNIQUE: Digital bilateral breast vickie (3D mammographic acquisition) in the CC and MLO projections. 2-D mediolateral oblique (MLO) and craniocaudad (CC) views of both breasts were obtained. CAD: Full Field Digital Mammography with Computer Added Detection was performed. COMPARISON: Comparison is made with prior study of September 19, 2021. FINDINGS: Breast Composition: The breasts are heterogeneously dense, which may obscure small masses. There are no dominant masses or suspicious calcifications. Stable small benign-appearing bilateral axillary lymph nodes. No other significant abnormalities are identified. There has been no significant change since the prior study. BI/SCRN MAMM (CAD)W/VICKIE BILAT IMPRESSION: Stable bilateral screening mammogram. Yearly follow-up mammogram recommended. (A) ASSESSMENT CATEGORY: BIRADS Category 2: Benign. A letter regarding these results will be sent to the patient by the facility within 30 days. Approximately 10% of breast cancers are not detected by mammography. A normal mammogram should not delay biopsy of a clinically suspicious abnormality. [id number] Electronically Signed: Blas Berumen MD at 8:38 EST , CC: YARELY Lange; Dr. Alisha Ingram DO Toxicologist: [facility]igned [facility] Office Visit (UCWSTR ) ROBYN CRUZ ([id number]) 1975 F Date Time Provider Department 08/05/24 7:30 PM TASHIA HAZEL [facility] During your visit today, we recorded the following information about you: Temperature Pulse Respiration Blood pressure 97.5 degrees 67/minute 18/minute 112/72 Weight 77.3 kg Tashia Hazel APRN.CNP 08/05/2024 7:46 PM Signed This note was created using NoteWriter. Subjective Robyn Cruz is a 48 year old female. 48 year old female with no PMH presents for illness. Acute onset 3 days ago +headache +chills +body aches +fatigue +sinus pressure Denies cough Denies ear Denies sore throat Denies N/V/D +exposure to ill contacts Recent travel The history is provided by the patient. No patient care technician was used. Flu Like Symptoms This is a new problem. The current episode started in the past 7 days. The problem occurs constantly. The problem has been gradually worsening. Associated symptoms include chills, fatigue, headaches and myalgias. Pertinent negatives include no abdominal pain, anorexia, arthralgias, change in bowel habit, chest pain, congestion, coughing, diaphoresis, fever, joint swelling, nausea, neck pain, numbness, rash, sore throat, swollen glands, urinary symptoms, vertigo, visual change, vomiting or weakness. Nothing aggravates the symptoms. Treatments tried: Advil/Morenita Holgate. The treatment provided no relief. PAST MEDICAL HISTORY Diagnosis Date Abnormal glandular Papanicolaou smear of cervix Abn. 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 Dysthymic disorder Depression (non-psychotic),postpar sherice depression Rh negative status during 11/04/2012 Rheumatic fever without mention of heart involvement 1997 PAST SURGICAL HISTORY Procedure Laterality Date COLPOSCOPY CERVIX UPPER/ADJACENT VAGINA Colposcopy PAST SURGICAL HISTORY OF LEFT BSO TUMOR DEBULKING PAST SURGICAL HISTORY OF EXPLORATORY LAPAROSCOPY PAST SURGICAL HISTORY OF WISDOM TEETH ALLERGIES Compazine [Prochlorperazine Edisylate] and Sulfa (Sulfonamide Antibiotics) MEDICATIONS Norgestimate-Ethinyl Estradiol (TRI-SPRINTEC) 0.18/0.215/0.25 mg-35 mcg (28) Tab Take 1 tablet by mouth once daily. (Patient not taking: Reported on 08/05/2024) Mdouuiob-Cb-Ogb-Fe-FA ( VITAMIN) Tab Take 1 tablet by mouth. (Patient not taking: Reported on 08/05/2024) FAMILY HISTORY Problem Relation Age of Onset Diabetes Maternal Grandfather Hypertension Maternal Grandmother Cancer Paternal Grandfather BLADDER Lipids Mother Heart Maternal Grandfather CHF Social History Tobacco Use Smoking status: Never Smokeless tobacco: Never Substance Use Topics Alcohol use: Yes Comment: OCCASIONALLY BUT NOT WHILE Drug use: No Review of Systems Constitutional: Positive for chills and fatigue. Negative for diaphoresis and fever. HENT: Positive for rhinorrhea, sinus pressure and sinus pain. Negative for congestion, ear pain and sore throat. Eyes: Negative for pain, discharge, redness and itching. Respiratory: Negative for apnea, cough and chest tightness. Cardiovascular: Negative for chest pain. Gastrointestinal: Negative for abdominal pain, anorexia, change in bowel habit, nausea and vomiting. Musculoskeletal: Positive for myalgias. Negative for arthralgias, joint swelling and neck pain. Skin: Negative for rash. Allergic/Immunologic: Negative for environmental allergies, food allergies and immunocompromised state. Neurological: Positive for headaches. Negative for vertigo, weakness and numbness. Hematological: Negative for adenopathy. Does not bruise/bleed easily. Objective BP 112/72 Pulse 67 Temp 36.4 ?C (97.5 ?F) (Tympanic) Resp 18 Wt 77.3 kg (170 lb 6.7 oz) LMP 09/09/2012 SpO2 99% Physical Exam Vitals and nursing note reviewed. Constitutional: General: She is not in acute distress. Appearance: Normal appearance. She is normal weight. She is not ill-appearing, toxic-appearing or diaphoretic. HENT: Head: Normocephalic and atraumatic. Right Ear: Ear canal and external ear normal. Left Ear: Ear canal and external ear normal. Nose: Nose normal. No congestion or rhinorrhea. Mouth/Throat: Mouth: Mucous membranes are moist. Pharynx: No oropharyngeal exudate or posterior oropharyngeal erythema. Eyes: General: Right eye: No discharge. Left eye: No discharge. Extraocular Movements: Extraocular movements intact. Conjunctiva/sclera: Conjunctivae normal. Pupils: Pupils are equal, round, and reactive to light. Cardiovascular: Rate and Rhythm: Normal rate and regular rhythm. Pulses: Normal pulses. Heart sounds: Normal heart sounds. No murmur heard. No friction rub. Pulmonary: Effort: Pulmonary effort is normal. No respiratory dis (more content not included)... Normal [facility] COVID AND INFLUENZA A/B AND RSV PCR, ROUTINEon 08-05-2024 SARS-CoV-2 (COVID-19) RNA MARBELLA+probe Ql (Unsp spec) SARS-COV-2 (AGENT OF COVID-19) RNA: Not detected INFLUENZA A RNA: Not detected INFLUENZA B RNA: Not detected RESPIRATORY SYNCYTIAL VIRUS (RSV) RNA: Not detected Normal [facility] Comment on above: Performed By: #### C VFLRS #### [facility] CLIA [id number] [address] [place] [address] [place] GLUCOSE ([id number])Ordered By: S ystem Preform Machine Operator on 05-27-2019 Glucose [Mass/Vol] 86 mg/dL Normal 65-99 Compre [facility] Internal Medicine Work Phone: Comment on above: PATIENT NOT FASTINGP ERFORMED BY: BN [facility] [address] [id number] BY: CB [facility] Gxodlw7970 [facility] [id number] NMR Profile ([id number])Ordered B y: Schedule Checker on 05-27-2019 Cholesterol [Mass/Vol] 181 mg/dL Normal 100-199 [facility] Work Phone: Comment on above: PATIENT NOT FASTINGP ERFORMED BY: [facility] Rtdployyjm7044 [facility] [id number] BY: [facility] Ajstji6620 [facility] [id number] Lipoprotein.alpha [Moles/Vol] 46.3 umol/L Normal [facility] Internal Medicine Work Phone: Comment on above: PATIENT NOT FASTINGP ERFORMED BY: [facility] Ofwkbyvkqn5242 [facility] [id number] BY: [facility] Dkfynr0813 [facility] [id number] Lipoprotein.beta.subpar ticle [Entitic length] 21.0 nm Normal [facility] Internal Medicine Work Phone: Comment on above: INTERPRETATIVE INFORMATION PARTICLE CONCENTRATION AND SIZE <--Lower CVD Risk Higher CVD Risk--> LDL AND HDL PARTICLES Percentile in Reference Population HDL-P (total) High 75th 50th 25th Low >34.9 34.9 30.5 26.7 <26.7 . Small LDL-P Low 25th 50th 75th High <117 117 527 839 >839 . LDL Size <-Large (Pattern A)-> <-Small (Pattern B)-> 23.0 20.6 20.5 19.0 Smal l LDL-P and LDL Size are associated with CVD risk, but not afterLDL-P is taken into account. .These assays were developed and their performance characteristicsdetermined by [employer]@ Project. These assays have not been cleared by [place] Food and Drug Administration. The clinical utility of theselaboratory values have not been fully established. PATIENT NOT FASTINGP ERFORMED BY: [employer] [id number] BY: LabTelderi Iamxtu69[address] [facility] [place] [id number] Lipoprotein.beta.subpar ticle [Moles/Vol] 914 nmol/L Normal [facility] Work Phone: Comment on above: Low < 1000 Moderate 1000 - 1299 Borderline-High 1300 - 1599 High 1600 - 2000 Very High > 2000 PATIENT NOT FASTINGP ERFORMED BY: [employer] [id number] BY: LabTelderi Pvwwmf49[address] [facility] [place] [id number] Lipoprotein.beta.subpar ticle.small [Moles/Vol] 339 nmol/L Normal Comprehe [facility] Internal Medicine Work Phone: Comment on above: PATIENT NOT FASTINGP ERFORMED BY: [employer] [id number] BY: [employer] Vzuzly2541 [address] [facility] [id number] Triglyceride [Mass/Vol] 120 mg/dL Normal 0-149 C omprehensive Internal Medicine Work Phone: Comment on above: PATIENT NOT FASTINGP ERFORMED BY: [employer] [id number] BY: [employer] Hinuir0626 [address] [facility] [id number] NMR Profile ([id number]) 84 mg/dL Normal 0-99 Compr ehensive Internal Medicine Work Phone: Comment on above: . Optimal < 100 Abov e optimal 100 - 129 Borderline 130 - 159 High 160 - 189 Very high > 189 .LDL-C is inaccurate if patient is non-fasting. PATIENT NOT FASTINGP ERFORMED BY: [employer] [id number] BY: [employer] Xisejb3680 Weeks RoadDublin [place] [id number] NMR Profile ([id number]) 73 mg/dL Normal Compr ehensive Internal Medicine Work Phone: Comment on above: PATIENT NOT FASTINGP ERFORMED BY: Eldarion [facility] Gnkhfxsnnd8475 [facility] [id number] BY: MILAGROS [facility] Yimdfc9307 [facility] [id number] GLUCOSE ([id number])Ordered By: S ystem Preform Machine Operator on 07-08-2018 Glucose [Mass/Vol] 90 mg/dL Normal 65-99 [facility] Internal Medicine Work Phone: Comment on above: PATIENT WAS FASTINGP ERFORMED BY: [facility] [address] [id number] BY: MILAGROS [facility] Teoxsu2706 [facility] [id number] LIPOPROTEIN, BLD, BY NMR ([id number])Ordered By: Schedule Checker on 07-08-2018 Cholesterol [Mass/Vol] 181 mg/dL Normal 100-199 Co [facility] Internal Medicine Work Phone: Comment on above: PATIENT WAS FASTINGP ERFORMED BY: Eldarion LabTelderirp [address] [id number] BY: MILAGROS [facility] Agtbme8171 [facility] [id number] Cholesterol in HDL [Mass/Vol] 78 mg/dL Normal [facility] Work Phone: Comment on above: PATIENT WAS FASTINGP ERFORMED BY: LabTelderirp [address] [id number] BY: LabTelderiVirtua MarltonHfujpk6919 [facility] [id number] Cholesterol in LDL [Mass/Vol] 86 mg/dL Normal 0-99 [facility] Work Phone: Comment on above: . Optimal < 100 Abov e optimal 100 - 129 Borderline 130 - 159 High 160 - 189 Very high > 189 .LDL-C is inaccurate if patient is non-fasting. PATIENT WAS FASTINGP ERFORMED BY: Eldarion LabTelderi[address] [id number] BY: [employer] Chwkha8173 [facility] [id number] Lipoprotein.alpha [Moles/Vol] 43.6 umol/L Normal [facility] Internal Medicine Work Phone: Comment on above: PATIENT WAS FASTINGP ERFORMED BY: [employer] [id number] BY: [employer] Pbkqlt8095 [facility] [id number] Lipoprotein.beta.subpar ticle [Entitic length] 21.5 nm Normal [facility] Internal Medicine Work Phone: Comment on above: INTERPRETATIVE INFORMATION PARTICLE CONCENTRATION AND SIZE <--Lower CVD Risk Higher CVD Risk--> LDL AND HDL PARTICLES Percentile in Reference Population HDL-P (total) High 75th 50th 25th Low >34.9 34.9 30.5 26.7 <26.7 . Small LDL-P Low 25th 50th 75th High <117 117 527 839 >839 . LDL Size <-Large (Pattern A)-> <-Small (Pattern B)-> 23.0 20.6 20.5 19.0 Smal l LDL-P and LDL Size are associated with CVD risk, but not afterLDL-P is taken into account. .These assays were developed and their performance characteristicsdetermined by [employer]. These assays have not been cleared by [place] Food and Drug Administration. The clinical utility of theselaboratory values have not been fully established. PATIENT WAS FASTINGP ERFORMED BY: [employer] [address] [id number] BY: iPawnlin6370 [facility] [id number] Lipoprotein.beta.subpar ticle [Moles/Vol] 920 nmol/L Normal [facility] Work Phone: Comment on above: Low < 1000 Moderate 1000 - 1299 Borderline-High 1300 - 1599 High 1600 - 2000 Very High > 2000 PATIENT WAS FASTINGP ERFORMED BY: LabTelderi[address] [id number] BY: LabCoRachel [place] [id number] [facility] [id number] Lipoprotein.beta.subpar ticle.small [Moles/Vol] 242 nmol/L Normal Comprehe nsive Internal Medicine Work Phone: Comment on above: PATIENT WAS FASTINGP ERFORMED BY: LabTelderi[address] [id number] BY: LabBrooke [place] [id number] [facility] [id number] Triglyceride [Mass/Vol] 84 mg/dL Normal 0-149 C [facility] Internal Medicine Work Phone: Comment on above: PATIENT WAS FASTINGP ERFORMED BY: LabTelderi[address] [id number] BY: Lab[facility]6370 [facility] [id number] Rapid Strep Test, Office ([id number] [id number])Ordered By: Analilia Duncan on 08-23-2010 S. pyogenes Ag IA Ql (Unsp spec) Negative Normal [facility] Work Phone: Urinalysis, Office ([id number])on 01-23-2010 Bilirubin Ql (U) Negative Normal Comprehe nsive Internal Medicine Work Phone: Glucose Test strip (U) [Mass/Vol] Negative Normal [facility] Work Phone: Hemoglobin Ql (U) Hemolyzed Trace Normal [facility] Work Phone: Ketones Ql (U) Negative Normal Comprehens so[facility] Internal Medicine Work Phone: Leukocyte esterase Test strip Ql (U) Moderate Normal [facility] Work Phone: Nitrite Ql (U) Negative Normal Comprehens [facility] Work Phone: pH (U) 7.0 [pH] Normal [facility] Work Phone: Protein Ql (U) Negative Normal Comprehens [facility] Internal Medicine Work Phone: Specific gravity (U) [Rel density] 1.010 1 Normal [facility] Work Phone: Urobilinogen (24H U) [Mass/Time] Normal Normal [facility] Work Phone: Vital Signs Date Time Vital Sign Value Performing Clinician Facility 12-21-2024 08:02-0400 Body height 167.6 cm Gabriel Sanders MD Work Phone: [facility] 12-21-2024 08:02-0400 Body mass index (BMI) [Ratio] 27.99 kg/m2 Gabriel Sanders MD Work Phone: [facility] 12-21-2024 08:02-0400 Body weight 78.65 kg Gabriel Sanders MD Work Phone: [facility] 12-21-2024 08:02-0400 Diastolic blood pressure 72 mm[Hg] Gabriel Sanders MD Work Phone: [facility] 12-21-2024 08:02-0400 Heart rate 76 /min Gabriel Sanders MD Work Phone: [facility] 12-21-2024 08:02-0400 Systolic blood pressure 103 mm[Hg] Gabriel Sanders MD Work Phone: [facility] 12-14-2024 08:18-0400 Body height 167.[address] Alisha Ingram DO Work Phone: [facility] 12-14-2024 08:18-0400 Body mass index (BMI) [Ratio] 27.6 kg/m2 Dr. Alisha Ingram DO Work Phone: [facility] 12-14-2024 08:18-0400 Body weight 77.[address] Alisha Ingram DO Work Phone: [facility] 12-14-2024 08:18-0400 Diastolic blood pressure 70 mm[Hg] Dr. Alisha Ingram DO Work Phone: [facility] 12-14-2024 08:18-0400 Systolic blood pressure 102 mm[Hg] Dr. Alisha Ingram DO Work Phone: [facility] 08-05-2024 19:34-0400 Body temperature 97.5 [degF] Tashia Hazel [employer]ATION GATEMAN.PROJECT DEVELOPMENT MANAGER Work Phone: [facility] 08-05-2024 19:34-0400 Body weight 77.3 kg Tashia Hazel STATION GATEM[employer].PROJECT DEVELOPMENT MANAGER Work Phone: [facility] 08-05-2024 19:34-0400 Diastolic blood pressure 72 mm[Hg] Tashia Hazel STATION GATEMAN.PROJECT DEVELOPMENT MANAGER Work Phone: [facility] 08-05-2024 19:34-0400 Heart rate 67 /min Tashia Hazel STATION GATEM[employer].PROJECT DEVELOPMENT MANAGER Work Phone: [facility] 08-05-2024 19:34-0400 Respiratory rate 18 /min Tashia Hazel STATION GATEM[employer].PROJECT DEVELOPMENT MANAGER Work Phone: [facility] 08-05-2024 19:34-0400 SaO2% (BldA) [Mass fraction] 99 % Tashia Hazel STATION [employer]EM[employer].PROJECT DEVELOPMENT MANAGER Work Phone: [facility] 08-05-2024 19:34-0400 Systolic blood pressure 112 mm[Hg] Tashia Hazel STATION GATEMAN.PROJECT DEVELOPMENT MANAGER Work Phone: [facility] 05-27-2019 09:34-0400 BMI (Body Mass Index) 26.52 kg/m2 [facility] Work Phone: 05-27-2019 09:34-0400 Body Temperature 98.1 [degF] Alisha Ingram [facility] Internal Medicine Work Phone: Comment on above: Method: Temporal 05-27-2019 09:34-0400 Body weight 72.29 kg Alisha Ingram [facility] Internal Medicine Work Phone: 05-27-2019 09:34-0400 BP Diastolic 62 mm[Hg] Alisha Ingram [facility] Internal Medicine Work Phone: Comment on above: Patient Position: Sitting; Cuff Location : Left Arm; Cuff Size: Large 05-27-2019 09:34-0400 BP Systolic 108 mm[Hg] Alisha Ingram [facility] Internal Medicine Work Phone: Comment on above: Patient Position: Sitting; Cuff Location : Left Arm; Cuff Size: Large 05-27-2019 09:34-0400 BSA (Body Surface Area) 1.8 m2 Alisha Ingram [facility] Internal Medicine Work Phone: 05-27-2019 09:34-0400 Height 165.1 cm Alisha Ingram [facility] Internal Medicine Work Phone: 05-27-2019 09:34-0400 Pulse (Heart Rate) 76 /min Alisha Ingram [facility] Internal Medicine Work Phone: Comment on above: Pattern: Regular 05-27-2019 09:34-0400 Pulse Oximetry 98 % Alisha Ingram [facility] Internal Medicine Work Phone: Comment on above: Room air 05-27-2019 09:34-0400 Respiratory Rate 18 /min Alisha Ingram [facility] Internal Medicine Work Phone: Comment on above: Pattern: Unlabored 07-08-2018 08:25-0400 BMI (Body Mass Index) 26.17 kg/m2 Alisha Ingram [facility] Internal Medicine Work Phone: 07-08-2018 08:25-0400 Body Temperature 97.9 [degF] Alisha Ingram [facility] Internal Medicine Work Phone: Comment on above: Method: Temporal 07-08-2018 08:25-0400 Body weight 71.33 kg Alisha Ingram [facility] Internal Medicine Work Phone: 07-08-2018 08:25-0400 BP Diastolic 74 mm[Hg] Alisha Ingram [facility] Internal Medicine Work Phone: Comment on above: Patient Position: Sitting; Cuff Location : Left Arm; Cuff Size: Standard 07-08-2018 08:25-0400 BP Systolic 130 mm[Hg] Alisha Ingram [facility] Internal Medicine Work Phone: Comment on above: Patient Position: Sitting; Cuff Location : Left Arm; Cuff Size: Standard 07-08-2018 08:25-0400 BSA (Body Surface Area) 1.79 m2 Alisha Ingram [facility] Internal Medicine Work Phone: 07-08-2018 08:25-0400 Height 165.1 cm Alisha Ingram [facility] Internal Medicine Work Phone: 07-08-2018 08:25-0400 Pulse (Heart Rate) 72 /min Alisha Ingram [facility] Internal Medicine Work Phone: Comment on above: Pattern: Regular 07-08-2018 08:25-0400 Pulse Oximetry 99 % Alisha Ingram [facility] Internal Medicine Work Phone: Comment on above: Room air 07-08-2018 08:25-0400 Respiratory Rate 16 /min Alisha Ingram [facility] Internal Medicine Work Phone: Comment on above: Pattern: Unlabored 07-29-2017 08:47-0400 BMI (Body Mass Index) 26.04 kg/m2 Alisha Ingram [facility] Internal Medicine Work Phone: 07-29-2017 08:47-0400 Body weight 70.99 kg Alisha Ingram [facility] Internal Medicine Work Phone: 07-29-2017 08:47-0400 BP Diastolic 78 mm[Hg] Alisha Ingram [facility] Internal Medicine Work Phone: Comment on above: Patient Position: Sitting; Cuff Location : Left Arm; Cuff Size: Large 07-29-2017 08:47-0400 BP Systolic 118 mm[Hg] Alisha Ingram [facility] Internal Medicine Work Phone: Comment on above: Patient Position: Sitting; Cuff Location : Left Arm; Cuff Size: Large 07-29-2017 08:47-0400 BSA (Body Surface Area) 1.78 m2 Alisha Ingram [facility] Internal Medicine Work Phone: 07-29-2017 08:47-0400 Height 165.1 cm Alisha Ingram [facility] Internal Medicine Work Phone: 07-29-2017 08:47-0400 Pulse (Heart Rate) 63 /min Alisha Ingram [facility] Internal Medicine Work Phone: 07-29-2017 08:47-0400 Pulse Oximetry 98 % Alisha Ingram [facility] Internal Medicine Work Phone: Comment on above: Room air 07-29-2017 08:47-0400 Respiratory Rate 18 /min Alisha Ingram [facility] Internal Medicine Work Phone: Comment on above: Pattern: Unlabored 07-19-2016 12:19-0400 BMI (Body Mass Index) 24.82 kg/m2 Alisha Ingram [facility] Internal Medicine Work Phone: 07-19-2016 12:19-0400 Body weight 67.64 kg Alisha Ingram [facility] Internal Medicine Work Phone: 07-19-2016 12:19-0400 BP Diastolic 78 mm[Hg] Alisha Ingram [facility] Internal Medicine Work Phone: Comment on above: Patient Position: Sitting; Cuff Location : Left Arm; Cuff Size: Large 07-19-2016 12:190400 BP Systolic 124 mm[Hg] Alisha Ingram [facility] Internal Medicine Work Phone: Comment on above: Patient Position: Sitting; Cuff Location : Left Arm; Cuff Size: Large 07-19-2016 12:190400 BSA (Body Surface Area) 1.75 m2 Alisha Ingram [facility] Internal Medicine Work Phone: 07-19-2016 12:190400 Height 165.1 cm Alisha Ingram [facility] Internal Medicine Work Phone: 07-19-2016 12:19-0400 Pulse (Heart Rate) 94 /min Alisha Ingram [facility] Internal Medicine Work Phone: Comment on above: Pattern: Regular 07-19-2016 12:19-0400 Pulse Oximetry 97 % Alisha Ingram [facility] Internal Medicine Work Phone: Comment on above: Room air 07-19-2016 12:19-0400 Respiratory Rate 18 /min Alisha Ingram [facility] Internal Medicine Work Phone: Comment on above: Pattern: Unlabored 08-03-2011 13:29-0400 BMI (Body Mass Index) 22.8 kg/m2 Alisha Ingram [facility] Internal Medicine Work Phone: 08-03-2011 13:29-0400 Body Temperature 98.1 [degF] Alisha Ingram [facility] Internal Medicine Work Phone: Comment on above: Method: Oral 08-03-2011 13:29-0400 Body weight 62.14 kg Alisha Ingram [facility] Internal Medicine Work Phone: 08-03-2011 13:29-0400 BP Diastolic 70 mm[Hg] Alisha Ingram [facility] Internal Medicine Work Phone: Comment on above: Patient Position: Sitting; Cuff Location : Left Arm; Cuff Size: Standard 08-03-2011 13:29-0400 BP Systolic 110 mm[Hg] Alisha Ingram [facility] Internal Medicine Work Phone: Comment on above: Patient Position: Sitting; Cuff Location : Left Arm; Cuff Size: Standard 08-03-2011 13:29-0400 BSA (Body Surface Area) 1.68 m2 Alisha Ingram [facility] Internal Medicine Work Phone: 08-03-2011 13:29-0400 Height 165.1 cm Alisha Ingram [facility] Internal Medicine Work Phone: 08-03-2011 13:29-0400 Pulse (Heart Rate) 72 /min Alisha Ingram [facility] Internal Medicine Work Phone: Comment on above: Pattern: Regular 08-03-2011 13:29-0400 Pulse Oximetry 99 % Alisha Ingram [facility] Internal Medicine Work Phone: Comment on above: Room air 08-03-2011 13:29-0400 Respiratory Rate 16 /min Alisha Ingram [facility] Internal Medicine Work Phone: 08-23-2010 09:00-0500 Body Temperature 97.3 [degF] Alisha Ingram [facility] Internal Medicine Work Phone: Comment on above: Method: Oral 08-23-2010 09:00-0500 Body weight 62.14 kg Alisha Ingram [facility] Internal Medicine Work Phone: 08-23-2010 09:00-0500 BP Diastolic 72 mm[Hg] Alisha Ingram [facility] Internal Medicine Work Phone: Comment on above: Patient Position: Sitting; Cuff Location : Left Arm; Cuff Size: Standard 08-23-2010 09:00-0500 BP Systolic 108 mm[Hg] Alisha Ingram [facility] Internal Medicine Work Phone: Comment on above: Patient Position: Sitting; Cuff Location : Left Arm; Cuff Size: Standard 08-23-2010 09:00-0500 Pulse (Heart Rate) 74 /min Alisha Ingram [facility] Internal Medicine Work Phone: Comment on above: Pattern: Regular 08-23-2010 09:00-0500 Respiratory Rate 16 /min Alisha Ingram [facility] Internal Medicine Work Phone: Comment on above: Pattern: Unlabored 01-23-2010 15:06-0400 Body Temperature 97.4 [degF] Alisha Ingram [facility] Internal Medicine Work Phone: Comment on above: Method: Oral 01-23-2010 15:06-0400 Body weight 62.14 kg Alisha Ingram [facility] Internal Medicine Work Phone: 01-23-2010 15:06-0400 BP Diastolic 60 mm[Hg] Alisha Ingram [facility] Internal Medicine Work Phone: Comment on above: Patient Position: Sitting; Cuff Location : Left Arm; Cuff Size: Standard 01-23-2010 15:06-0400 BP Systolic 102 mm[Hg] Al[facility] Work Phone: Comment on above: Patient Position: Sitting; Cuff Location : Left Arm; Cuff Size: Standard 01-23-2010 15:06-0400 Pulse (Heart Rate) 68 /min Alisha Ingram [facility] Internal Medicine Work Phone: Comment on above: Pattern: Regular 01-23-2010 15:06-0400 Respiratory Rate 16 /min Alisha Ingram [facility] Internal Medicine Work Phone: Comment on above: Pattern: Unlabored 01-05-2010 09:06-0400 BP Diastolic 60 mm[Hg] Alisha Ingram [facility] Internal Medicine Work Phone: Comment on above: Patient Position: Sitting; Cuff Location : Left Arm; Cuff Size: Large 01-05-2010 09:06-0400 BP Systolic 118 mm[Hg] Alisha Ingram [facility] Internal Medicine Work Phone: Comment on above: Patient Position: Sitting; Cuff Location : Left Arm; Cuff Size: Large 01-05-2010 09:06-0400 Pulse (Heart Rate) 60 /min Alisha Ingram [facility] Internal Medicine Work Phone: Comment on above: Pattern: Regular 01-05-2010 09:06-0400 Respiratory Rate 20 /min Alisha Ingram [facility] Internal Medicine Work Phone: Comment on above: Pattern: Unlabored 01-03-2009 13:14-0400 Body Temperature 99.2 [degF] Alisha Ingram [facility] Internal Medicine Work Phone: Comment on above: Method: Oral 01-03-2009 13:14-0400 Body weight 0 kg Alisha Ingram [facility] Internal Medicine Work Phone: 01-03-2009 13:14-0400 BP Diastolic 72 mm[Hg] Alisha Ingram [facility] Internal Medicine Work Phone: Comment on above: Patient Position: Sitting; Cuff Location : Left Arm; Cuff Size: Large 01-03-2009 13:14-0400 BP Systolic 108 mm[Hg] [facility] Work Phone: Comment on above: Patient Position: Sitting; Cuff Location : Left Arm; Cuff Size: Large 01-03-2009 13:14-0400 Head Circumference 0 cm [facility] Work Phone: 01-03-2009 13:14-0400 Height 0 cm Alisha [facility] Medicine Work Phone: 01-03-2009 13:14-0400 Pulse (Heart Rate) 64 /min Alisha Ingram [facility] Work Phone: Comment on above: Pattern: Regular 01-03-2009 13:14-0400 Respiratory Rate 18 /min Alisha Ingram [facility] Work Phone: Comment on above: Pattern: Unlabored 02-17-2008 08:32-0400 Body Temperature 97.8 [degF] Alisha In[facility] Work Phone: Comment on above: Method: Oral 02-17-2008 08:32-0400 Body weight 0 kg Alisha Ingram [facility] Internal Medicine Work Phone: 02-17-2008 08:32-0400 BP Diastolic 70 mm[Hg] Alisha Ingram [facility] Internal Medicine Work Phone: Comment on above: Patient Position: Sitting; Cuff Location : Left Arm; Cuff Size: Standard 02-17-2008 08:32-0400 BP Systolic 104 mm[Hg] Alisha [facility] Work Phone: Comment on above: Patient Position: Sitting; Cuff Location : Left Arm; Cuff Size: Standard 02-17-2008 08:32-0400 Head Circumference 0 cm Alisha Ingram [facility] Internal Medicine Work Phone: 02-17-2008 08:32-0400 Height 0 cm Alisha Ingram [facility] Internal Medicine Work Phone: 02-17-2008 08:32-0400 Pulse (Heart Rate) 74 /min Alisha In[facility] Work Phone: Comment on above: Pattern: Regular 02-17-2008 08:32-0400 Respiratory Rate 16 /min Alisha Ingram [facility] Internal Medicine Work Phone: Comment on above: Pattern: Unlabored 01-30-2008 09:04-0400 Body Temperature 98.2 [degF] Alisha [facility] Work Phone: Comment on above: Method: Oral 01-30-2008 09:04-0400 Body weight 0 kg Alisha Ingram [facility] Internal Medicine Work Phone: 01-30-2008 09:04-0400 BP Diastolic 68 mm[Hg] Alisha Ingram [facility] Internal Medicine Work Phone: Comment on above: Patient Position: Sitting; Cuff Location : Left Arm; Cuff Size: Standard 01-30-2008 09:04-0400 BP Systolic 100 mm[Hg] Alisha Ingram [facility] Internal Medicine Work Phone: Comment on above: Patient Position: Sitting; Cuff Location : Left Arm; Cuff Size: Standard 01-30-2008 09:04-0400 Head Circumference 0 cm Alisha Ingram [facility] Internal Medicine Work Phone: 01-30-2008 09:04-0400 Height 0 cm Alisha Ingram [facility] Internal Medicine Work Phone: 01-30-2008 09:04-0400 Pulse (Heart Rate) 72 /min Alisha Ingram [facility] Internal Medicine Work Phone: Comment on above: Pattern: Regular 01-30-2008 09:04-0400 Respiratory Rate 18 /min Alisha Ingram [facility] Internal Medicine Work Phone: Comment on above: Pattern: Unlabored 01-27-2008 14:56-0400 Body Temperature 97.8 [degF] Alisha Ingram [facility] Internal Medicine Work Phone: Comment on above: Method: Oral 01-27-2008 14:56-0400 Body weight 0 kg Alisha Ingram [facility] Internal Medicine Work Phone: 01-27-2008 14:56-0400 BP Diastolic 76 mm[Hg] Alisha Ingram [facility] Internal Medicine Work Phone: Comment on above: Patient Position: Sitting; Cuff Location : Left Arm; Cuff Size: Standard 01-27-2008 14:56-0400 BP Systolic 110 mm[Hg] Alisha Ingram [facility] Internal Medicine Work Phone: Comment on above: Patient Position: Sitting; Cuff Location : Left Arm; Cuff Size: Standard 01-27-2008 14:56-0400 Head Circumference 0 cm Alisha Ingram [facility] Internal Medicine Work Phone: 01-27-2008 14:56-0400 Height 0 cm Alisha Ingram [facility] Internal Medicine Work Phone: 01-27-2008 14:56-0400 Pulse (Heart Rate) 100 /min Alisha Ingram [facility] Internal Medicine Work Phone: Comment on above: Pattern: Regular 01-27-2008 14:56-0400 Pulse Oximetry 96 % Alisha Ingram [facility] Internal Medicine Work Phone: Comment on above: Room air 01-27-2008 14:56-0400 Respiratory Rate 18 /min Alisha Ingram [facility] Internal Medicine Work Phone: Comment on above: Pattern: Unlabored 01-14-2007 11:19-0400 Body Temperature 98.8 [degF] Alisha Ingram [facility] Internal Medicine Work Phone: Comment on above: Method: Oral 01-14-2007 11:19-0400 Body weight 0 kg Alisha Ingram [facility] Internal Medicine Work Phone: 01-14-2007 11:19-0400 BP Diastolic 76 mm[Hg] Alisha Ingram [facility] Internal Medicine Work Phone: Comment on above: Patient Position: Sitting; Cuff Location : Left Arm; Cuff Size: Standard 01-14-2007 11:19-0400 BP Systolic 110 mm[Hg] Alisha Ingram [facility] Internal Medicine Work Phone: Comment on above: Patient Position: Sitting; Cuff Location : Left Arm; Cuff Size: Standard 01-14-2007 11:19-0400 Head Circumference 0 cm Alisha Ingram [facility] Internal Medicine Work Phone: 01-14-2007 11:19-0400 Height 0 cm Alisha Ingram [facility] Internal Medicine Work Phone: 01-14-2007 11:19-0400 Pulse (Heart Rate) 80 /min Alisha Ingram [facility] Internal Medicine Work Phone: Comment on above: Pattern: Regular 01-14-2007 11:19-0400 Respiratory Rate 20 /min Alisha [facility] Work Phone: Comment on above: Pattern: Unlabored Encounters Encounter Date Encounter Type Care Provider Facility Start: 12-21-2024 End: 12-21-2024 Office outpatient new 30 minutes Gabriel Sanders MD Work Phone: [facility] [place] Comment on above: History of germ cell tumor (Primary Dx); Primary oligomenorrhea Start: 12-21-2024 End: 12-21-2024 ambulatory GABRIEL SANDERS [facility] Start: 12-14-2024 End: 12-14-[address] Ceci Saleem MD -[facility] Work Phone: Start: 12-14-2024 End: 12-14-2024 ambulatory Ceci Saleem Facility:[facility] Start: 12-14-2024 End: 12-14-2024 ambulatory Alishacee Ingram Facility:[facility] Start: 09-23-2024 End: 09-23-2024 Patient encounter procedure Shalini PRITCHETT -[facility] Work Phone: Start: 09-23-2024 End: 09-23-2024 ambulatory Alisha Ingram Facility:[facility] Start: 08-05-2024 End: 08-05-2024 ambulatory Facility:[facility] Start: 08-05-2024 End: 08-05-2024 Patient encounter procedure Tashia Hazel APRN.PROJECT DEVELOPMENT MANAGER Work Phone: [facility] Comment on above: Viral illness (Prima ry Dx); URI, acute Start: 05-27-2019 End: 05-27-2019 Periodic preventive med est patient 40-64yrs Alishaamarjit [facility] Start: 07-08-2018 End: 07-08-2018 Periodic preventive med est patient 40-64yrs Alisha Ingram [facility] Start: 07-29-2017 End: 07-29-2017 Periodic preventive med est patient 18-39 yrs Alisha Laney [facility] Start: 07-19-2016 End: 07-19-2016 Periodic preventive med est patient 18-39 yrs Alisha [facility] Start: 08-02-2015 End: 08-02-2015 Historical Summary [facility]isha [facility] Start: 08-03-2011 End: 08-03-2011 Phone Encounter Alisha Laney [facility] Start: 08-03-2011 End: 08-03-2011 Office outpatient visit 15 minutes Alisha [facility] Start: 08-23-2010 End: 08-23-2010 Office outpatient visit 15 minutes Alisha Lane[facility] Start: 01-23-2010 End: 01-23-2010 Office outpatient visit 25 minutes Alisha [facility] Start: 01-09-2010 End: 01-09-2010 Phone Encounter [facility] Start: 01-05-2010 End: 01-05-2010 Patient encounter procedure Alisha [facility] Start: 04-18-2009 End: 04-18-2009 Phone Encounter Alisha Laney [facility] Start: 01-03-2009 End: 01-03-2009 Office outpatient visit 25 minutes Alisha [facility] Start: 02-17-2008 End: 02-17-2008 Office outpatient visit 10 minutes Alisha [facility] Start: 01-30-2008 End: 01-30-2008 Patient encounter procedure Alisha Ingram [facility] Start: 01-27-2008 End: 01-27-2008 Patient encounter procedure Alisha [facility] Start: 01-14-2007 End: 01-14-2007 Patient encounter procedure Alisha Ingram [facility] Start: 01-14-2007 End: 01-14-2007 Historical Summary [facility]isha [facility] Procedures Date Procedure Procedure Detail Performing Clinician Start: 09-23-[address] Alisha peña DO Work Phone: Start: 03-18-2019 End: 03-18-2019 12 lead ECG Comments: See Note; NOTES: [facility] Cardiovascular Services [address] [place] [address] 12 Lead EKG 03/16/19 1920 MR#: [id number] Acct: [id number] Name: ROBYN CRUZ Rep #: [id number] : 1975 43 From: Flaco Mccloud MD Attending Dr: Status: DEP ER Ordering Dr: Scar Sellers DO Date: 03/16/19 Location: ED Sex: F C Admitted: Test Reason : CP Blood Pressure : / mmHG Vent. Rate : 074 BPM Atrial Rate : 074 BPM P-R Int : 152 ms QRS Dur : 098 ms QT Int : 398 ms P-R-T Axes : 063 054 048 degrees QTc Int : 441 ms Normal sinus rhythm ICR BBB Confirmed by ROGERS BOSS, FLACO ([id number]), editor farm journal SERINA GARCIA ([id number]) on 03/18/2019 11:14:06 AM Referred By: RU Confirmed By:FLACO MCCLOUD MD 03/18/19 1114 Date Flaco Mccloud MD CC: Scar Sellers DO; Alisha Ingram DO Signed Alisha Ingram Start: 03-16-2019 End: 03-16-2019 Emergency Department Summary Comments: See Note; NOTES: [facility] Medical Records Department [address] [place] [id number] Emergency Department Summary 03/16/191934 MR#: [id number] Acct: [id number] Name: ROBYN CRUZ Rep #: [id number] : 1975 43 From: Scar eSllers DO PCP: Alisha Ingram DO Status: REG ER - ER Visit Summary Date of Service: 03/16/19 Chief Complaint: Chest pain and palpitations History of Present Illness: The patient is a 43 F who presents with chest pain and palpitations that have been intermittent over the past 5 days. Patient states her pain is in the substernal area. Patient states it feels as though something is crawling in her chest. Patient states she gets intermittent flushed feelings. Patient also states she has intermittent bilateral arm soreness. Patient denies any shortness of breath but admits to a recent cough. Patient also admits to her sore throat a couple weeks ago. Patient admits to subjective fevers. Patient denies any nausea or vomiting. Patient denies any diaphoresis. Patient denies any heartburn or reflux. Physical Examination: Vital signs are stable. Patient is afebrile. Patient is in no acute distress. Oral mucosa is pink and moist. Neck is supple. Trachea is midline. There is no JVD noted. Heart was regular rate and rhythm. Lungs are clear and equal bilateral. There is no reproducible chest tenderness. Abdomen is soft. Bowel sounds are normal. There is no tenderness. There is no guarding noted. Skin is warm dry. Cranial nerves II through XII are intact. There are no focal motor or sensory deficits noted. The remaining physical exam is within normal limits. Test Results: EKG showed normal sinus rhythm with a rate of 74. There are no acute ST or T wave changes. CBC, basic metabolic profile, and troponin were obtained and were normal. PA and lateral chest x-ray was obtained and was normal. Emergency Department Course and Treatment: Patient was given 4 baby aspirin here. Patient felt better on reevaluation. Patient has a HEART score of 2. Patient was advised that this is low risk for acute cardiac event. Patient was instructed to follow-up with her primary care physician in 5 to 7 days. Patient understood and was agreeable with the plan. All questions were answered. Disposition: Discharge home Impression: Chest pain This note was generated with [employer] dictation software. It may contain incorrect words, spelling, and punctuation that were not noted in review of the chart prior to signing ED Disposition - Plan for ED Patient: Disposition: Home or Assisted Living Diagnosis: Chest pain Instructions: ED Palpitations, ED Chest Pain Atypical Unkn Cause Referrals: Alisha Ingram DO [Primary Care Provider] - 3-5 Days What to do if you have Problems For any increased pain, shortness of breath, bleeding, nausea or vomiting, chest pain, or any unexpected problems, contact your Primary Care Provider. Call [facility] ([phone]) or report to the closest Emergency Room. Call 911 if necessary. 03/16/192020 <Electronically signed by Scar Sellers DO> Date Scar Sellers DO Cosigner Signature (If Indicated): Date CC: Alisha Fleming Start: 03-16-2019 End: 03-16-2019 Chest PA and Lateral Comments: See Note; NOTES: [facility] Imaging Services [address] [place] [address] Chest PA and Lateral MR#: [id number] Acct: [id number] Name: ROBYN CRUZ Rep #: [id number] : 1975 F 43 From: Myrna Mehta DO PCP: Alisha Ingram DO Status: REG ER Study: Chest PA and Lateral Date of Exam: 03/16/19 Exam# [id number] Ordering Dr: Scar Sellers DO HISTORY:CHEST PAIN CHEST PAIN EXAM: XR Chest 2 Views: COMPARISON: July 19, 2016 FINDINGS: # of images incl. paperwork: 2 LINES/DEVICES: None. LUNGS: Radiographically clear. No consolidation, edema or effusion. No pneumothorax. MEDIASTINUM AND CARDIOVASCULAR STRUCTURES: Cardiac silhouette not enlarged. BONES AND SOFT TISSUES: Unremarkable. RAD/Chest PA and Lateral IMPRESSION: No radiographic evidence of acute cardiopulmonary disease. at 1956 Reported and signed by: Myrna Mehta DO Electronically Signed: Myrna Mehta DO at 19:57 EDT Tel , Service support , CC: Scar Sellers DO; Alisha Ingram DO Toxicologist: Signed Alisha Ingram Start: 07-19-2016 End: 07-19-2016 Chest PA and Lateral Comments: See Note; NOTES: [facility] Services [address] [place] [address] Verdana 4d Chest PA and Lateral MR#: [id number] Acct: [id number] Name: ROBYN CRUZ Rep #: [id number] : 1975 F 40 From: Johnathan Brizuela MD PCP: Alisha Ingram DO Status: REG CLI Study: Chest PA and Lateral Date of Exam: 07/19/16 Exam# [id number] Ordering Dr: Alisha Ingram DO STUDY: X-RAY CHEST REASON FOR EXAM: Female, 40 years old. Cough TECHNIQUE: PA and lateral views of the chest. COMPARISON: None. FINDINGS: The lungs are clear and expanded. There is no demonstrated pleural abnormality. Normal size heart. Normal mediastinum and tracy. Normal visualized pulmonary arteries. Normal visualized aortic arch and descending thoracic aorta. Normal visualized thoracic spine. Normal visualized ribs, clavicles, and shoulders. There is no demonstrated abnormality of the visualized soft tissue structures of the upper abdomen. RAD/Chest PA and Lateral IMPRESSION: Normal x-ray examination of the chest. Electronically Signed: Johnathan Brizuela MD, FACR at 17:41 EDT , Service support [phone], CC: Alisha Ingram DO Toxicologist: Signed Alisha Ingram Work Phone: Plan of Treatment Date Care Activity Detail Author Start: 2052 RSV Immunization for Adults (1 - 1-dose 75+ series) RSV Immunization for Adults (1 - 1-dose 75+ series) [facility] Start: 12-29-2027 Zoster Vaccines (1 of 2) Zoster Vaccines (1 of 2) [facility] Start: 06-07-2024 Covid-19 Vaccine ( season) Covid-19 Vaccine ( season) [facility] Start: 06-07-2024 Influenza vaccination Influenza Vaccine (#1) [facility] Start: 2022 Diabetes Screening Diabetes Screening [facility] Start: 2022 Lipid panel Lipid Screening [facility] Start: 2022 Screening for malignant neoplasm of colon [facility] Start: 05-27-2019 Glucose [Mass/Vol] GLUCOSE (87743) [facility] Work Phone: Start: 05-27-2019 Lipoprotein blood anjali numbers & subclasses NMR Profile (91415) [facility] Work Phone: Start: 07-08-2018 Procedure Education Eprescribed prescriptions (G8553) [facility] Work Phone: Start: 2017 Screening for malignant neoplasm of breast [facility] Start: 07-29-2017 Glucose [Mass/Vol] GLUCOSE (96682) [facility] Work Phone: Start: 07-29-2017 Lipid panel LIPID PANEL (69380) [facility] Work Phone: Start: 08-27-2016 Screening for malignant neoplasm of cervix Cervical Cancer Screening [facility] Start: 07-19-2016 Procedure Education Eprescribed prescriptions (G8553) [facility] Work Phone: Start: 07-19-2016 Provider Instructions for Treatment [facility] Work Phone: Start: 07-19-2016 Glucose [Mass/Vol] GLUCOSE (95279) [facility] Work Phone: Start: 07-19-2016 Lipid panel LIPID PANEL (55758) [facility] Work Phone: Start: 08-23-2010 Provider Instructions for Treatment Poison Jody Education [facility] Work Phone: Start: 08-23-2010 Cul bact xcpt urine blood/stool aerobic isol JAKE CULTURE-OTHER (43676) [facility] Work Phone: Start: 01-23-2010 Nuclear Ab IF (S) [Titer] HIMANSHU (ANTINUCLEAR ANTIBODY) (18447) [facility] Work Phone: Start: 01-23-2010 TSH Qn TSH (62569) [facility] Work Phone: Start: 01-23-2010 Comprehensive metabolic panel Metabolic Panel, Comprehensive (71719) [facility] Work Phone: Start: 01-23-2010 Culture bacterial quanttative colony count urine URINE JAKE CULTURE-ANJALI COL COUNT (02394) [facility] Work Phone: Start: 01-23-2010 Provider Instructions for Treatment FOLLOW UP IN 2 WEEKS with [facility] Work Phone: Start: 01-03-2009 Provider Instructions for Treatment [facility] Work Phone: Start: 01-27-2008 Provider Instructions for Treatment [facility] Work Phone: Start: 12-29-2007 Screening for malignant neoplasm of cervix [facility] Start: 01-14-2007 Provider Instructions for Treatment [facility] Work Phone: Start: 1998 Screening for malignant neoplasm of cervix Pap Smear [facility] Start: 1996 DTaP/Tdap/Td Vaccines (1 - Tdap) DTaP/Tdap/Td Vaccines (1 - Tdap) [facility] Start: 1996 Hepatitis B Vaccine (1 of 3 - 19+ 3-dose series) Hepatitis B Vaccine (1 of 3 - 19+ 3-dose series) [facility] Start: 1996 Hepatitis B Vaccines (1 of 3 - 19+ 3-dose series) Hepatitis B Vaccines (1 of 3 - 19+ 3-dose series) [facility] Start: 1996 Urine microalbumin profile DTaP,Tdap,Td Vaccine (1 - Tdap) [facility] Start: 12-29-1995 Anxiety Screening Anxiety Screening [facility] Start: 12-29-1995 Depression Screening Depression Screening [facility] Start: 12-29-1995 Diabetes mellitus screening Diabetes Screening [facility] Start: 12-29-1995 Hepatitis C screening Hepatitis C Screening [facility] Start: 12-29-1995 HIV screening HIV Screening [facility] Start: 1989 Depression Screening Depression Screening [facility] Start: 1978 MMR Vaccines (1 of 1 - Standard series) MMR Vaccines (1 of 1 - Standard series) [facility] Start: 1977 HIV screening HIV Screening [facility] Start: 1977 Screening for malignant neoplasm of colon [facility] COVID & INFLUENZA A/ B & RSV PCR, ROUTINE COVID & INFLUENZA A/B & RSV PCR, ROUTINE Microbiology Routine Viral illness URI, acute 08/05/2024 7:49 PM EDT [facility] Work Phone: [facility] Work Phone: [facility] Work Phone: [facility] Work Phone: [facility] Work Phone: [facility] Work Phone: [facility] Work Phone: [facility] Immunizations Immunization Date Immunization Notes Care Provider Fa [facility] 08-02-2015 influenza, seasonal, injectable Tashia Hazel STATION GATEMAN.PROJECT DEVELOPMENT MANAGER Work Phone: [facility] 08-02-2015 influenza virus vaccine, unspecified formulation Tashia Hazel STATION GATEMAN.PROJECT DEVELOPMENT MANAGER Work Phone: [facility] 12-24-2007 RHO(D) immune globul in- IV or IM Tashia Hazel STATION GATEMAN.PROJECT DEVELOPMENT MANAGER Work Phone: [facility] Work Phone: Payers Date Payer Category Payer Self-pay 2024 Commercial Managed C are - PPO [employer] PPO [id number] 2024 Private Health Insurance [id number] 2024 Private Health Insurance [id number] 2015 Unknown [facility] [id number] Self-pay SELF PAY INSURANCE [id number] Unknown UMR Unknown [id number] Unknown [id number] Unknown [id number] Unknown ANTHEM [id number] Unknown 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 Tobacco use: Tobacco use: [facility] Work Phone: Start: 08-27-2011 End: 12-14-2024 Tobacco smoking status NHIS Never smoked tobacco [facility] Start: 08-27-2011 End: 12-18-2024 Tobacco use and exposure Smokeless tobacco non-user [facility] Start: 08-05-2024 End: 12-21-2024 Alcoholic beverage intake Current drinker of alcohol (finding) [facility] Start: 08-05-2024 End: 12-21-2024 Tobacco use panel [facility] Start: 08-02-2007 Alcohol Comment OCCASIONALLY B UT NOT WHILE [facility] Start: 1975 Sex assigned at Not on file [facility] Start: 12-18-2024 Alcohol Comment Occ [facility] Start: 12-16-2024 End: 12-22-2024 Sex Female (finding) [facility] Start: 1975 Sex Assigned At Female W [facility] Functional Status Date Assessment Result Facility 05-27-2019 LP-IR Score LP-IR Score 29 [facility] Work Phone: Comment on above: INSULIN RESISTANCE M ARKER <--Insulin Sensitive Insulin Resistant--> Percentile in Reference PopulationInsulin Resistance ScoreLP-IR Score Low 25th 50th 75th High <27 27 45 63 >63LP-IR Score is inaccurate if patient is non-fasting. .The LP-IR score is a laboratory developed index that has beenassociated with insulin resistance and diabetes risk and should beused as one component of a physician's clinical assessment. TheLP-IR score listed above has not been cleared by the [place] Food andDrug Administration. PATIENT NOT FASTINGP ERFORMED BY: [employer] [facility] [id number] BY: [email or web address] [facility] [id number] 07-08-2018 LP-IR Score LP-IR Score <25 [facility] Work Phone: Comment on above: INSULIN RESISTANCE M ARKER <--Insulin Sensitive Insulin Resistant--> Percentile in Reference PopulationInsulin Resistance ScoreLP-IR Score Low 25th 50th 75th High <27 27 45 63 >63LP-IR Score is inaccurate if patient is non-fasting. .The LP-IR score is a laboratory developed index that has beenassociated with insulin resistance and diabetes risk and should beused as one component of a physician's clinical assessment. TheLP-IR score listed above has not been cleared by the [place] Food andDrug Administration. PATIENT WAS FASTINGP ERFORMED BY: [employer] [facility] [id number] BY: [email or web address] [facility] [id number] History of Present illness Narrative 12-21-2024 Gabriel Sanders MD - 12/21/2024 8:00 AM EDT Note Date & Type Note Facility 12-21-2024 History of Presen t illness Narrative HPI: Robyn Cruz is a pleasant 48 y.o. female who presents in consultation from Dr. Saleem for further evaluation and management of history of germ cell tumor in 2001 treated with left oophorectomy along with chemotherapy. Patient was followed at the [facility] for many years. . She initiallypresented with complaint of oligomenorrhea. Her last menstrual cycle was in June 2024. Prior to this she did have some heavy menstrual cycles but was not really an issue. She is having some vasomotor symptoms. Has had her thyroid studies checked per the patient and was normal and a recent endometrial biopsy was normal. Is currently on a progesterone challenge test. 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 She subsequently underwent 3 courses of chemotx with BEP and tolerat ed them well. Initial tumor markers were HCG 16,549 , AFP 7, 273 and CA 125 301. Was on oral contraceptives for ovarian suppression during chemotherapy. Past Medical History: Diagnosis Date Germ cell cancer (HCC) 2000 Vitamin D deficiency Past Surgical History: Procedure Laterality Date SALPINGECTOMY Family History Problem Relation Name Age of Onset Inflammatory bowel disease Mother Suicide Brother 31 Both Gms with heavy menses No breast or ov cancer Social History Socioeconomic History Marital status: Unknown Tobacco Use Smoking status: Never Smokeless tobacco: Never Substance and Sexual Activity Alcohol use: Yes Comment: Occ Drug use: Yes Types: Marijuana Comment: Gummies 3x a week Sexual activity: Yes Partners: Male Current Outpatient Medications Medication Sig Dispense Refill cyanocobalamin (Vitamin B-12) 1000 MCG tablet Take 1,000 mcg by mouth daily. medroxyPROGESTERone (Provera) 10 MG tablet Take 10 mg by mouth daily. Multiple Vitamin (multivitamin) tablet Take 1 tablet by mouth daily. No current facility-administered medications for this visit. Allergies as of 12/21/2024 - Reviewed 12/21/2024 Allergen Reaction Noted Prochlorperazine 06/18/2006 Sulfamethoxazole-trimethoprim 12/18/2024 Trimethoprim 03/16/2019 Review of Systems: Review of Systems Endocrine: Vasomotor symptoms Genitourinary: Positive for menstrual problem. Oligomenorrhea BP 103/72 Pulse 76 Ht 1.676 m (5' 6) Wt 78.7 kg (173 lb 6.4 oz) LMP 07/23/2024 BMI 27.99 kg/m Physical Exam: Physical Exam Vitals and nursing note reviewed. Constitutional: Appearance: Normal appearance. Neurological: Mental Status: She is alert. Psychiatric: Mood and Affect: Mood normal. Behavior: Behavior normal. Multiple records in [facility] from the [facility] have personally been reviewed. ASSESSMENT/PLAN: Diagnosis Plan 1. History of germ cell tumor 2. Primary oligomenorrhea Patient is currently undergoing an appropriate workup for her oligomenorrhea. She very well may be menopausal. I did talk to her cotton tier and recommend checking an FSH level. We also discussed that her ovarian cancer no longer requires any additional surveillance as she is now more than 10 years out. NCCN guidelines call for stopping tumor markers after 10 years. There would be no contraindication for using hormone replacement therapy. All the patient's questions were answered to the best my ability and I did convey my recommendations to her primary cotton tier. Total time spent on date of service with review of multiple EMR [id number] counseling with patient and coordination of care with referring physician was 35 minutes documented in this encounter [facility] Clinical Note 12-21-2024 Note Date & Type Note Facility 12-21-2024 Note HPI: Robyn Cruz is a pleasant 48 y.o. female who presents in consultation from Dr. Saleem for further evaluation and management of history of germ cell tumor in 2001 treated with left oophorectomy along with chemotherapy. Patient was followed at the [facility] for many years. . She initiallypresented with complaint of oligomenorrhea. Her last menstrual cycle was in June 2024. Prior to this she did have some heavy menstrual cycles but was not really an issue. She is having some vasomotor symptoms. Has had her thyroid studies checked per the patient and was normal and a recent endometrial biopsy was normal. Is currently on a progesterone challenge test. 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 She subsequently underwent 3 courses of chemotx with BEP and tolerat ed them well. Initial tumor markers were HCG 16,549 , AFP 7, 273 and CA 125 301. Was on oral contraceptives for ovarian suppression during chemotherapy. Past Medical History: Diagnosis Date Germ cell cancer (HCC) 2000 Vitamin D deficiency Past Surgical History: Procedure Laterality Date SALPINGECTOMY Family History Problem Relation Name Age of Onset Inflammatory bowel disease Mother Suicide Brother 31 Both Gms with heavy menses No breast or ov cancer Social History Socioeconomic History Marital status: Unknown Tobacco Use Smoking status: Never Smokeless tobacco: Never Substance and Sexual Activity Alcohol use: Yes Comment: Occ Drug use: Yes Types: Marijuana Comment: Gummies 3x a week Sexual activity: Yes Partners: Male Current Outpatient Medications Medication Sig Dispense Refill cyanocobalamin (Vitamin B-12) 1000 MCG tablet Take 1,000 mcg by mouth daily. medroxyPROGESTERone (Provera) 10 MG tablet Take 10 mg by mouth daily. Multiple Vitamin (multivitamin) tablet Take 1 tablet by mouth daily. No current facility-administered medications for this visit. Allergies as of 12/21/2024 - Reviewed 12/21/2024 Allergen Reaction Noted Prochlorperazine 06/18/2006 Sulfamethoxazole-trimethoprim 12/18/2024 Trimethoprim 03/16/2019 Review of Systems: Review of Systems Endocrine: Vasomotor symptoms Genitourinary: Positive for menstrual problem. Oligomenorrhea BP 103/72 Pulse 76 Ht 1.676 m (5' 6) Wt 78.7 kg (173 lb 6.4 oz) LMP 07/23/2024 BMI 27.99 kg/m? Physical Exam: Physical Exam Vitals and nursing note reviewed. Constitutional: Appearance: Normal appearance. Neurological: Mental Status: She is alert. Psychiatric: Mood and Affect: Mood normal. Behavior: Behavior normal. Multiple records in [facility] from the [facility] have personally been reviewed. ASSESSMENT/PLAN: Diagnosis Plan 1. History of germ cell tumor 2. Primary oligomenorrhea Patient is currently undergoing an appropriate workup for her oligomenorrhea. She very well may be menopausal. I did talk to her cotton tier and recommend checking an FSH level. We also discussed that her ovarian cancer no longer requires any additional surveillance as she is now more than 10 years out. NCCN guidelines call for stopping tumor markers after 10 years. There would be no contraindication for using hormone replacement therapy. All the patient's questions were answered to the best my ability and I did convey my recommendations to her primary cotton tier. Total time spent on date of service with review of multiple EMR [id number] counseling with patient and coordination of care with referring physician was 35 minutes [facility] Clinical Note 12-14-2024 Note Date & Type Note Facility 12-14-2024 Note [facility] Pap Smear Specimen Adequacy December 14, 2024 1:49pm Comment . Satisfactory for evaluation. Endocervical and/or squamous metaplasticcells (endocervical component) are present. Comment on above: Satisfactory for svitlana luation. Endocervical and/or squamous metaplasticcells (endocervical component) are present. Evaluation note 12-14-2024 Note Date & Type Note Facility 12-14-2024 Evaluation note Diagnosis Onset Date Resolution Climacteric acute December 14 8:06am Germ cell cancer acute December 142024 8:06am Oligomenorrhea acute December 8:06am [facility] Work Phone: Progress note 08-05-2024 Note Date & Type Note Facility 08-05-2024 Note HNO ID: [id number] Author: TASHIA HAZEL APRN.PROJECT DEVELOPMENT MANAGER Service: ? Author Type: Nurse Practitioner Type: Progress Notes Filed: 08/05/2024 19:46 Note Text: This note was created using NoteWriter. Subjective Robyn Cruz is a 48 year old female. 48 year old female with no PMH presents for illness. Acute onset 3 days ago +headache +chills +body aches +fatigue +sinus pressure Denies cough Denies ear Denies sore throat Denies N/V/D +exposure to ill contacts Recent travel The history is provided by the patient. No patient care technician was used. Flu Like Symptoms This is a new problem. The current episode started in the past 7 days. The problem occurs constantly. The problem has been gradually worsening. Associated symptoms include chills, fatigue, headaches and myalgias. Pertinent negatives include no abdominal pain, anorexia, arthralgias, change in bowel habit, chest pain, congestion, coughing, diaphoresis, fever, joint swelling, nausea, neck pain, numbness, rash, sore throat, swollen glands, urinary symptoms, vertigo, visual change, vomiting or weakness. Nothing aggravates the symptoms. Treatments tried: Advil/Morenita Holgate. The treatment provided no relief. PAST MEDICAL HISTORY Diagnosis Date Abnormal glandular Papanicolaou smear of cervix Abn. 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 Dysthymic disorder Depression (non-psychotic), depression Rh negative status during 11/04/2012 Rheumatic fever without mention of heart involvement 1997 PAST SURGICAL HISTORY Procedure Laterality Date COLPOSCOPY CERVIX UPPER/ADJACENT VAGINA Colposcopy PAST SURGICAL HISTORY OF LEFT BSO TUMOR DEBULKING PAST SURGICAL HISTORY OF EXPLORATORY LAPAROSCOPY PAST SURGICAL HISTORY OF WISDOM TEETH ALLERGIES Compazine [Prochlorperazine Edisylate] and Sulfa (Sulfonamide Antibiotics) MEDICATIONS Norgestimate-Ethinyl Estradiol (TRI-SPRINTEC) 0.18/0.215/0.25 mg-35 mcg (28) Tab Take 1 tablet by mouth once daily. (Patient not taking: Reported on 08/05/2024) Yftgpbvh-Gu-Nvo-Fe-FA ( VITAMIN) Tab Take 1 tablet by mouth. (Patient not taking: Reported on 08/05/2024) FAMILY HISTORY Problem Relation Age of Onset Diabetes Maternal Grandfather Hypertension Maternal Grandmother Cancer Paternal Grandfather BLADDER Lipids Mother Heart Maternal Grandfather CHF Social History Tobacco Use Smoking status: Never Smokeless tobacco: Never Substance Use Topics Alcohol use: Yes Comment: OCCASIONALLY BUT NOT WHILE Drug use: No Review of Systems Constitutional: Positive for chills and fatigue. Negative for diaphoresis and fever. HENT: Positive for rhinorrhea, sinus pressure and sinus pain. Negative for congestion, ear pain and sore throat. Eyes: Negative for pain, discharge, redness and itching. Respiratory: Negative for apnea, cough and chest tightness. Cardiovascular: Negative for chest pain. Gastrointestinal: Negative for abdominal pain, anorexia, change in bowel habit, nausea and vomiting. Musculoskeletal: Positive for myalgias. Negative for arthralgias, joint swelling and neck pain. Skin: Negative for rash. Allergic/Immunologic: Negative for environmental allergies, food allergies and immunocompromised state. Neurological: Positive for headaches. Negative for vertigo, weakness and numbness. Hematological: Negative for adenopathy. Does not bruise/bleed easily. Objective BP 112/72 Pulse 67 Temp 36.4 ?C (97.5 ?F) (Tympanic) Resp 18 Wt 77.3 kg (170 lb 6.7 oz) LMP 09/09/2012 SpO2 99% Physical Exam Vitals and nursing note reviewed. Constitutional: General: She is not in acute distress. Appearance: Normal appearance. She is normal weight. She is not ill-appearing, toxic-appearing or diaphoretic. HENT: Head: Normocephalic and atraumatic. Right Ear: Ear canal and external ear normal. Left Ear: Ear canal and external ear normal. Nose: Nose normal. No congestion or rhinorrhea. Mouth/Throat: Mouth: Mucous membranes are moist. Pharynx: No oropharyngeal exudate or posterior oropharyngeal erythema. Eyes: General: Right eye: No discharge. Left eye: No discharge. Extraocular Movements: Extraocular movements intact. Conjunctiva/sclera: Conjunctivae normal. Pupils: Pupils are equal, round, and reactive to light. Cardiovascular: Rate and Rhythm: Normal rate and regular rhythm. Pulses: Normal pulses. Heart sounds: Normal heart sounds. No murmur heard. No friction rub. Pulmonary: Effort: Pulmonary effort is normal. No respiratory distress. Breath sounds: Normal breath sounds. No stridor. No wheezing, rhonchi or rales. Chest: Chest wall: No tenderness. Abdominal: General: Abdomen is flat. There is no distension. Palpations: Abdomen is soft. There is no mass. Tenderness: There is no abdominal tenderness. The (more content not included)... [facility] History of Present illness Narrative 08-05-2024 Tashia Hazel APRN.PROJECT DEVELOPMENT MANAGER - 08/05/2024 7:42 PM EDT Note Date & Type Note Facility 08-05-2024 History of Presen t illness Narrative This note was created using NoteWriter. Subjective Robyn Cruz is a 48 year old female. 48 year old female with no PMH presents for illness. Acute onset 3 days ago +headache +chills +body aches +fatigue +sinus pressure Denies cough Denies ear Denies sore throat Denies N/V/D +exposure to ill contacts Recent travel The history is provided by the patient. No patient care technician was used. Flu Like Symptoms This is a new problem. The current episode started in the past 7 days. The problem occurs constantly. The problem has been gradually worsening. Associated symptoms include chills, fatigue, headaches and myalgias. Pertinent negatives include no abdominal pain, anorexia, arthralgias, change in bowel habit, chest pain, congestion, coughing, diaphoresis, fever, joint swelling, nausea, neck pain, numbness, rash, sore throat, swollen glands, urinary symptoms, vertigo, visual change, vomiting or weakness. Nothing aggravates the symptoms. Treatments tried: Advil/Morenita Holgate. The treatment provided no relief. PAST MEDICAL HISTORY Diagnosis Date Abnormal glandular Papanicolaou smear of cervix Abn. 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 Dysthymic disorder Depression (non-psychotic), depression Rh negative status during 11/04/2012 Rheumatic fever without mention of heart involvement 1997 PAST SURGICAL HISTORY Procedure Laterality Date COLPOSCOPY CERVIX UPPER/ADJACENT VAGINA Colposcopy PAST SURGICAL HISTORY OF LEFT BSO TUMOR DEBULKING PAST SURGICAL HISTORY OF EXPLORATORY LAPAROSCOPY PAST SURGICAL HISTORY OF WISDOM TEETH ALLERGIES Compazine [Prochlorperazine Edisylate] and Sulfa (Sulfonamide Antibiotics) MEDICATIONS Norgestimate-Ethinyl Estradiol (TRI-SPRINTEC) 0.18/0.215/0.25 mg-35 mcg (28) Tab Take 1 tablet by mouth once daily. (Patient not taking: Reported on 08/05/2024) Zdjhykly-Ue-Xco-Fe-FA ( VITAMIN) Tab Take 1 tablet by mouth. (Patient not taking: Reported on 08/05/2024) FAMILY HISTORY Problem Relation Age of Onset Diabetes Maternal Grandfather Hypertension Maternal Grandmother Cancer Paternal Grandfather BLADDER Lipids Mother Heart Maternal Grandfather CHF Social History Tobacco Use Smoking status: Never Smokeless tobacco: Never Substance Use Topics Alcohol use: Yes Comment: OCCASIONALLY BUT NOT WHILE Drug use: No Review of Systems Constitutional: Positive for chills and fatigue. Negative for diaphoresis and fever. HENT: Positive for rhinorrhea, sinus pressure and sinus pain. Negative for congestion, ear pain and sore throat. Eyes: Negative for pain, discharge, redness and itching. Respiratory: Negative for apnea, cough and chest tightness. Cardiovascular: Negative for chest pain. Gastrointestinal: Negative for abdominal pain, anorexia, change in bowel habit, nausea and vomiting. Musculoskeletal: Positive for myalgias. Negative for arthralgias, joint swelling and neck pain. Skin: Negative for rash. Allergic/Immunologic: Negative for environmental allergies, food allergies and immunocompromised state. Neurological: Positive for headaches. Negative for vertigo, weakness and numbness. Hematological: Negative for adenopathy. Does not bruise/bleed easily. Objective BP 112/72 Pulse 67 Temp 36.4 C (97.5 F) (Tympanic) Resp 18 Wt 77.3 kg (170 lb 6.7 oz) LMP 09/09/2012 SpO2 99% Physical Exam Vitals and nursing note reviewed. Constitutional: General: She is not in acute distress. Appearance: Normal appearance. She is normal weight. She is not ill-appearing, toxic-appearing or diaphoretic. HENT: Head: Normocephalic and atraumatic. Right Ear: Ear canal and external ear normal. Left Ear: Ear canal and external ear normal. Nose: Nose normal. No congestion or rhinorrhea. Mouth/Throat: Mouth: Mucous membranes are moist. Pharynx: No oropharyngeal exudate or posterior oropharyngeal erythema. Eyes: General: Right eye: No discharge. Left eye: No discharge. Extraocular Movements: Extraocular movements intact. Conjunctiva/sclera: Conjunctivae normal. Pupils: Pupils are equal, round, and reactive to light. Cardiovascular: Rate and Rhythm: Normal rate and regular rhythm. Pulses: Normal pulses. Heart sounds: Normal heart sounds. No murmur heard. No friction rub. Pulmonary: Effort: Pulmonary effort is normal. No respiratory distress. Breath sounds: Normal breath sounds. No stridor. No wheezing, rhonchi or rales. Chest: Chest wall: No tenderness. Abdominal: General: Abdomen is flat. There is no distension. Palpations: Abdomen is soft. There is no mass. Tenderness: There is no abdominal tenderness. There is no right CVA tenderness, left CVA tenderness, guarding or rebound. Hernia: No hernia is present. Musculoskeletal: General: No swelling, tenderness, deformity or signs of injury. Normal range of motion. Cervical back: Normal range of motion and neck supple. No rigidity. Right lower leg: No edema. Left lower leg: No edema. Lymphadenopathy: Cervical: No cervical adenopathy. Skin: General: Skin is warm and dry. Coloration: Skin is not jaundiced or pale. Findings: No bruising, erythema, lesion or rash. Neurological: General: No focal deficit present. Mental Status: She is alert and oriented to person, place, and time. Cranial Nerves: No cranial nerve deficit. Sensory: No sensory deficit. Motor: No weakness. Coordination: Coordination normal. Gait: Gait normal. Psychiatric: Mood and Affect: Mood normal. Behavior: Behavior normal. Thought Content: Thought content normal. Judgment: Judgment normal. Assessment and Plan ASSESSMENT/PLAN: 1. Viral illness - ICD9: 079.99, ICD10: B34.9 (primary diagnosis) - Discussed viral etiology and rationale for treatment. - Symptomatic treatment with prn analgesia - Supportive care with fluids and rest - The patient may also use OTC cough and cold meds as needed, warm salt water gargles, throat lozenges and/or OTC throat spray as needed, and nasal saline gtts and suction prn. - Follow up in 3-5 days if symptoms persist or sooner if worsening of symptoms - COVID & INFLUENZA A/B & RSV PCR, ROUTINE 2. URI, acute - ICD9: 465.9, ICD10: J06.9 - Discussed viral etiology and rationale for treatment. - Symptomatic treatment with prn analgesia - Supportive care with fluids and rest - The patient may also use OTC cough and cold meds as needed, warm salt water gargles, throat lozenges and/or OTC throat spray as needed, and nasal saline gtts and suction prn. - Follow up in 3-5 days if symptoms persist or sooner if worsening of symptoms - COVID & INFLUENZA A/B & RSV PCR, ROUTINE Tashia Hazel APRN.PROJECT DEVELOPMENT MANAGER documented in this encounter [facility] Evaluation note Note Date & Type Note Facility Evaluation note Diagnosis Viral illness- Primary Unspecified viral infection, in conditions classified elsewhere and of unspecified site URI, acute Acute upper respiratory infections of unspecified site documented in this encounter [facility] Evaluation note Note Date & Type Note Facility Evaluation note Diagnosis History of germ cell tumor- Primary Primary oligomenorrhea [place] or infrequent menstruation documented in this encounter [facility] Reason for referral (narrative) Note Date & Type Note Facility Reason for referral (narrative) No reason for referral information available [facility] Work Phone: Instructions Name Dates Details How to access health informa tion online Indication:Non-smoker Start:27-May-2019 Instruction Type:Patient Education How to access health informa tion online - Detail Indication:Non-smoker Start:27-May-2019 Instruction Type:Patient Education Patient Instructions Indication:Non-smoker Start:27-May-2019 Instruction Type:Provider Instructions for Treatment How to access health informa tion online Indication:BMI 26.0-26.9,adult Start:08-Jul-2018 Instruction Type:Patient Education How to access health informa tion online - Detail Indication:BMI 26.0-26.9,adult Start:08-Jul-2018 Instruction Type:Patient Education Patient Instructions Indication:BMI 26.0-26.9,adult Start:08-Jul-2018 Instruction Type:Provider Instructions for Treatment How to access health informa tion online Indication:Non-smoker Start:29-Jul-2017 Instruction Type:Patient Education How to access health informa tion online - Detail Indication:Non-smoker Start:29-Jul-2017 Instruction Type:Patient Education Patient Instructions Indication:Non-smoker Start:29-Jul-2017 Instruction Type:Provider Instructions for Treatment How to access health informa tion online Indication:Cough Start:19-Jul-2016 Instruction Type:Patient Education How to access health informa tion online - Detail Indication:Cough Start:19-Jul-2016 Instruction Type:Patient Education Patient Instructions Indication:Cough Start:19-Jul-2016 Instruction Type:Provider Instructions for Treatment Name Dates Details How to access health informa tion online Indication:Non-smoker Start:27-May-2019 Instruction Type:Patient Education How to access health informa tion online - Detail Indication:Non-smoker Start:27-May-2019 Instruction Type:Patient Education Patient Instructions Indication:Non-smoker Start:27-May-2019 Instruction Type:Provider Instructions for Treatment How to access health informa tion online Indication:BMI 26.0-26.9,adult Start:08-Jul-2018 Instruction Type:Patient Education How to access health informa tion online - Detail Indication:BMI 26.0-26.9,adult Start:08-Jul-2018 Instruction Type:Patient Education Patient Instructions Indication:BMI 26.0-26.9,adult Start:08-Jul-2018 Instruction Type:Provider Instructions for Treatment How to access health informa tion online Indication:Non-smoker Start:29-Jul-2017 Instruction Type:Patient Education How to access health informa tion online - Detail Indication:Non-smoker Start:29-Jul-2017 Instruction Type:Patient Education Patient Instructions Indication:Non-smoker Start:29-Jul-2017 Instruction Type:Provider Instructions for Treatment How to access health informa tion online Indication:Cough Start:19-Jul-2016 Instruction Type:Patient Education How to access health informa tion online - Detail Indication:Cough Start:19-Jul-2016 Instruction Type:Patient Education Patient Instructions Indication:Cough Start:19-Jul-2016 Instruction Type:Provider Instructions for Treatment Summary Purpose Family History Relationship Condition Age at Onset Recorded Date/T harriet brother Alcoholism Unknown Attempted suicide Unknown grandmother Arthritis Unknown Hypertension Unknown mother Disorder of intestine Unknown grandfather Cardiac disease Unknown Advance Directives No Advanced Directives Records FoundNo Advanced Directives Records FoundNo Advanced Directives Records Found Chief Complaint and Reason for Visit Chief Complaint Admit Date SCREENING September 23, 2024 3:35pm EMB, AUB HX CANCER December 14, 2024 8:0 6am Reason for Visit Admit Date Climacteric December 14, 2024 8:0 6am Germ cell cancer December 14, 2024 8:0 6am Oligomenorrhea December 14, 2024 8:0 6am Additional Source Comments Source Comments (unrecognize d section and content) In the event this informatio n is protected by the Federal Confidentiality of Alcohol and Drug Abuse Patient Records regulations: The Federal rules restrict any use of the information to criminally investigate or prosecute any alcohol or drug abuse patient.[facility] Reason for Visit (unrecogniz ed section and content) Reason Comments Headache FERNANDEZ, bodyaches and ch ills x 1-2 days Reason Comments Female Problem Specialty Diagnoses / Procedures Referred By Contac t Referred To Contact Gynecologic Oncology Diagnoses Malignant (primary) neoplasm, unspecified (HCC) Oligomenorrhea, unspecified Procedures [place] OFFICE/OUTPATIENT NEW HIGH MDM 60 MINUTES Ceci Saleem [address] [place] [address] Phone: tel: fax: [facility] Gynecologic Oncology - [place] [address] [place] [address] Phone: tel: fax: Referral ID Status Reason Start Date Expiration Date V isits Requested Visits Authorized [id number] Pending Review 12/16/2024 12/16/2025 1 1 INFORMATION SOURCE (unrecogn ized section and content) DATE CREATED AUTHOR 08/07/2024 [facility] DATE CREATED AUTHOR AUTHOR'S ORGANIZ ATION 12/22/2024 [facility] DATE CREATED AUTHOR AUTHOR'S ORGANIZ ATION 12/25/2024 [facility] Teams (unrecognized sec tion and content) 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 Alisha Ingram DO Family Provider Active Dr. Alisha Ingram DO Primary Care Provider Active Team Status: Inactive Member Role Status Dates Dr. Alisha Ingram DO Primary Care Provider Active Start: September 23, 2024 End: September 23, 2024 YARELY Montez Attending Provider Active Start: September 23, 2024 End: September 23, 2024 YARELY Montez Referring Provider Active Start: September 23, 2024 End: September 23, 2024 Team Status: Inactive Member Role Status Dates Dr. Alisha Ingram DO Primary Care Provider Active Start: December 14, 2024 End: December 14, 2024 Dr. Alisha Ingram DO Referring Provider Active Start: December 14, 2024 End: December 14, 2024 Dr. Ceci Saleem MD Attending Provider Active Start: December 14, 2024 End: December 14, 2024 Team Status: Inactive Member Role Status Dates Dr. Alisha Ingram DO Primary Care Provider Active Start: December 14, 2024 End: December 14, 2024 Dr. Ceci Saleem MD Attending Provider Active Start: December 14, 2024 End: December 14, 2024 Goals (unrecognized section and content) Goals may be documented in a n alternate section FOR RECORDS PERTAINING TO PATIENTS WHO ARE OR HAVE BEEN ENROLLED IN A CHEMICAL DEPENDENCY/SUBSTANCEABUSE PROGRAM, SOME INFORMATION MAY BE OMITTED. This clinical summary was aggregated from multiple sources. Caution should be exercised in using it in the provision of clinical care. This summary normalizes information from multiple sources, and as a consequence, information in this document may materially change the coding, format and clinical context of patient data. In addition, data may be omitted in some cases. CLINICAL DECISIONS SHOULD BE BASED ON THE PRIMARY CLINICAL RECORDS. [employer] provides no warranty or guarantee of the accuracy or completeness of information in this document.
== END | disposition home or self-care (01) ==
LOC: BWCLAB 11:02
PROVIDERS: PCP Internal Medicine; Visit Provider Nurse Practitioner Family
DX: N91.5 Oligomenorrhea, unspecified (principal)
CPT/HCPCS: 36415; 82670; 83001; 84443